=== PATIENT | female | born 1945 | race Caucasian/White ===

== ENCOUNTER 2017-11-18 20:31 | Emergency (ER) | payer OTHER ==
[2017-11-18 21:29] LABS: Arterial Blood Carboxyhemoglob 1.2 % (0-1.5); Blood Gas Oxyhemoglobin 96.8 % (94-97)
[2017-11-18] MEDS ORDERED: IPRATROPIUM BROM 0.5MG/2.5ML ONE (21:47)
[2017-11-18] MEDS ORDERED: ALBUTEROL 2.5 MG/3 ML NEB SOL ONE (21:47)
[2017-11-18] MEDS ORDERED: METHYLPREDNISOLONE 125 MG INJ ONE (21:47)
[2017-11-18] MEDS ORDERED: NA CHLORIDE 0.9% 1,000 ML ONE (21:47)
[2017-11-18 21:49] LABS: Absolute Lymphocytes (CBC) 1.7 K/uL (0.7-4.9); Absolute Monocytes 0.3 K/uL (0.1-1.3); Absolute Neutrophil 3.6 K/uL (1.8-8.0); Basophils % 0.6 % (0-1.3); Eosinophils % 2.3 % (0-4.4); Hematocrit 43.1 % (36.0-45.0); MCH 30.2 pg (27.0-35.0); MCV 89.1 fL (80-100); MPV 9.1 fL (7.6-11.3); RBC Red Blood Cell Count 4.83 M/uL (3.86-4.86)
[2017-11-18 21:55] LABS: Protime INR 1.05
[2017-11-18 22:04] LABS: Bicarbonate 30 mEq/L (21-31); Glucose Level 103 mg/dL (65-120); Lipase 19 U/L (22-51); Sodium Level 138 mEq/L (135-145)
[2017-11-18 22:10] LABS: ALT/SGPT 15 IU/L (10-60); AST/SGOT 18 IU/L (10-42); Albumin 4.1 g/dL (3.2-5.5); Alkaline Phosphatase 117 IU/L (42-121); Amylase Level 36 U/L (28-100); BUN Blood Urea Nitrogen 14 mg/dL (6-20); Bilirubin Direct 0.1 mg/dL (0-0.2); Bilirubin Total 0.8 mg/dL (0.3-1.2); Creatine Phosphokinase 33 IU/L (22-269); Magnesium 1.8 mg/dL (1.8-2.5); Protein, Total 7.4 g/dL (6.0-8.3)
[2017-11-18 22:12] LABS: CKMB Creatine Kinase MB 1.3 ng/ml (0.3-4.0)
--- NOTE | 2017-11-18 23:21 | EDPHYS ---
Physician Documentation [facility] Name: Chey Kay Age: 72 yrs Sex: Female : 1945 Arrival Date: 11/18/2017 Time: 20:32 Bed 20 Private MD: Jv Good E ED Physician Mata Meneses HPI: 11/18 21:13 This 72 yrs old Female presents to ER via Wheelchair with complaints of pkl Breathing Difficulty, Side Pain. 21:13 The patient has shortness of breath at rest. Onset: The symptoms/episode began/occurred pkl 1 week(s) ago. Associated signs and symptoms: Pertinent positives: chest pain, productive cough. The patient has experienced similar episodes in the past, several times. Patient said she is also depressed over granddaughter being taken away by CPS. Historical: - Allergies: 20:54 NKDA; ea - Home Meds: 20:54 citalopram 20 mg oral tab [Active]; hydrocodone-acetaminophen 7.5-325 mg oral tab ea [Active]; - PMHx: 20:54 COPD; Hepatitis; ea - PSHx: 20:54 Appendectomy; ea - Immunization history:: Adult Immunizations up to date. - Social history:: Smoking status: Patient/guardian denies using tobacco, the patient reports quitting approximately 1 years ago. ROS: 21:13 Eyes: Negative for injury, pain, redness, and discharge, ENT: Negative for injury, pkl pain, and discharge, Neck: Negative for injury, pain, and swelling. 21:13 Cardiovascular: Positive for chest pain. 21:13 Respiratory: Positive for cough, with clear sputum, shortness of breath, wheezing. 21:13 Abdomen/GI: Negative for abdominal pain, nausea, vomiting, and diarrhea. 21:13 Back: Negative for acute changes. 21:13 : Negative for urinary symptoms. 21:13 MS/extremity: Negative for acute changes. 21:13 Skin: Negative for rash. 21:13 Neuro: Negative for altered mental status. Exam: 21:13 Head/Face: Normocephalic, atraumatic. Eyes: Pupils equal round and reactive to light, pkl extra-ocular motions intact. Lids and lashes normal. Conjunctiva and sclera are non-icteric and not injected. Cornea within normal limits. Periorbital areas with no swelling, redness, or edema. ENT: Nares patent. No nasal discharge, no septal abnormalities noted. Tympanic membranes are normal and external auditory canals are clear. Oropharynx with no redness, swelling, or masses, exudates, or evidence of obstruction, uvula midline. Mucous membranes moist. Neck: Trachea midline, no thyromegaly or masses palpated, and no cervical lymphadenopathy. Supple, full range of motion without nuchal rigidity, or vertebral point tenderness. No Meningismus. Chest/axilla: Normal chest wall appearance and motion. Nontender with no deformity. No lesions are appreciated. Cardiovascular: Regular rate and rhythm with a normal S1 and S2. No gallops, murmurs, or rubs. Normal PMI, no JVD. No pulse deficits. 21:13 ECG was reviewed by the Attending Physician. 21:13 Respiratory: mild respiratory distress is noted, Respirations: labored breathing, that is mild, Breath sounds: bronchial sounds, that are mild, are scattered, rhonchi, that are mild, are scattered. 21:13 Abdomen/GI: Exam negative for acute changes. 21:13 Back: Exam negative for acute changes. 21:13 : Exam negative for acute changes. 21:13 Musculoskeletal/extremity: Exam is negative for acute changes. 21:13 Skin: Exam negative for rash. 21:13 Neuro: Orientation: is normal, Mentation: is normal, Cranial nerves: grossly normal, Motor: is normal. Vital Signs: 20:55 BP 112 / 71; Pulse 96; Resp 20 S; Temp 98.1(O); Pulse Ox 96% on 3 lpm NC; Weight 55.79 ea kg (R); Height 5 ft. 1 in. (154.94 cm) (R); Pain 7/10; 22:04 BP 110 / 58; Pulse 61; Resp 20 S; Pulse Ox 99% on Nebulizer Mask; jd3 22:47 BP 115 / 62; Pulse 90; Resp 19 S; Pulse Ox 96% on 2 lpm NC; jd3 20:55 Body Mass Index 23.24 (55.79 kg, 154.94 cm) ea MDM: 20:43 Patient medically screened. pkl 23:11 Data reviewed: vital signs, nurses notes, lab test result(s), EKG, radiologic studies, pkl plain films. 11/18 21:11 Order name: Basic Metabolic Panel; Complete Time: 23:09 pkl 05/05 21:11 Order name: BNP; Complete Time: 23:09 pkl 05/05 21:11 Order name: CBC with Diff; Complete Time: 23:09 pkl 05/05 21:11 Order name: Ckmb; Complete Time: 23:09 pkl 05/ 21:11 Order name: CPK; Complete Time: 23:09 pkl 05/ 21:11 Order name: LFT's; Complete Time: 23:09 pkl 05/ 21:11 Order name: Magnesium; Complete Time: 23:09 pkl 05/ 21:11 Order name: PT-INR; Complete Time: 23:09 pkl 05/05 21:11 Order name: Ptt, Activated; Complete Time: 23:09 pkl 05/ 21:11 Order name: Troponin (emerg Dept Use Only); Complete Time: 23:09 pkl 05/05 21:12 Order name: ABG; Complete Time: 23:09 pkl 05/ 21:12 Order name: Procalcitonin; Complete Time: 23:09 pkl 05/05 21:12 Order name: Lactate; Complete Time: 23:09 pkl 05/05 21:12 Order name: Amylase, Serum; Complete Time: 23:09 pkl 05/05 21:11 Order name: XRAY Chest (1 view) pkl 05/05 21:11 Order name: EKG; Complete Time: 21:11 pkl 05/ 21:11 Order name: Cardiac monitoring; Complete Time: 21:21 pkl 05/ 21:11 Order name: EKG - Nurse/Tech; Complete Time: 21:34 pkl 05/ 21:11 Order name: IV Saline Lock; Complete Time: 21:45 pkl 05/ 21:11 Order name: Labs collected and sent; Complete Time: 21:45 pkl 05/ 21:11 Order name: O2 Per Protocol; Complete Time: 21:21 pkl 05/ 21:11 Order name: O2 Sat Monitoring; Complete Time: 21:21 pkl 05/ 21:18 Order name: Lipase; Complete Time: 23:09 EDMS Administered Medications: 21:55 Drug: NS 0.9% 1000 ml Route: IV; Rate: 100 ml/hr; Site: right antecubital; ea 23:32 Follow up: Response: No adverse reaction; IV Status: Order to discontinue infusion jd3 21:56 Drug: Albuterol - atroVENT (3:1) (2.5 mg - 0.5 mg) 3 ml Route: Nebulizer; ea 23:35 Follow up: Response: No adverse reaction; Marked relief of symptoms jd3 21:56 Drug: SOLU-Medrol 125 mg Route: IVP; Site: right antecubital; ea 23:35 Follow up: Response: No adverse reaction jd3 Disposition: 11/18/17 23:20 Discharged to Home. Impression: COPD exacerbation. Depression. - Condition is Stable. - Prescriptions for Ativan 1 mg Oral Tablet - take 1 tablet by ORAL route 2 times per day As needed; 10 tablet. - Medication Reconciliation Form, Thank You Letter, Antibiotic Education, Prescription Opioid Use form. - Follow up: Jv Good MD; When: 2 - 3 days; Reason: Re-evaluation by your physician. - Problem is new. - Symptoms have improved. Signatures: Dispatcher [employer] EDNY Mata Meneses MD MD pkl Afshan Lopez, RN RN Clay Jack RN RN jd3 Corrections: (The following items were deleted from the chart) 21:18 21:13 LIPASE+C.LAB.BRZ ordered. [facility] EDNY 23:36 23:20 11/18/2017 23:20 Discharged to Home. Impression: COPD exacerbation. Depression. jd3 Condition is Stable. Forms are Medication Reconciliation Form, Thank You Letter, Antibiotic Education, Prescription Opioid Use. Follow up: Jv Good; When: 2 - 3 days; Reason: Re-evaluation by your physician. Problem is new. Symptoms have improved. pkl
--- NOTE | 2017-11-18 23:21 | ER ---
Nurse's Notes [facility] Name: Chey Kay Age: 72 yrs Sex: Female : 1945 Arrival Date: 11/18/2017 Time: 20:32 Bed 20 Private MD: Jv Good E Diagnosis: COPD exacerbation. Depression Presentation: 11/18 20:49 Presenting complaint: Patient states: "It has been really hard to breath recently. I am ea also having this pain on my left flank. Also I am feeling depressed because CPS took my granddaughter away form down the [address] so I can't go visit her anymore which is making things harder to breath and I am depressed and I don't know what to do.". Transition of care: patient was not received from another setting of care. Onset of symptoms was November 14, 2017. Initial Sepsis Screen: Does the patient meet any 2 criteria? No. Patient's initial sepsis screen is negative. Does the patient have a suspected source of infection? No. Patient's initial sepsis screen is negative. Care prior to arrival: None. 20:49 Method Of Arrival: Wheelchair ea 20:49 Acuity: RANDALL 3 ea Historical: - Allergies: 20:54 NKDA; ea - Home Meds: 20:54 citalopram 20 mg oral tab [Active]; hydrocodone-acetaminophen 7.5-325 mg oral tab ea [Active]; - PMHx: 20:54 COPD; Hepatitis; ea - PSHx: 20:54 Appendectomy; ea - Immunization history:: Adult Immunizations up to date. - Social history:: Smoking status: Patient/guardian denies using tobacco, the patient reports quitting approximately 1 years ago. Screenin:00 Abuse screen: Denies threats or abuse. Nutritional screening: No deficits noted. jd3 Tuberculosis screening: No symptoms or risk factors identified. Fall Risk Ambulatory Aid- None/Bed Rest/Nurse Assist (0 pts). Gait- Weak (10 pts.). Mental Status- Oriented to own ability (0 pts). Total Tse Fall Scale indicates No Risk (0-24 pts). Assessment: 20:58 General: Appears uncomfortable, Behavior is cooperative, appropriate for age, anxious. jd3 Pain: Complains of pain in left lateral anterior chest Pain currently is 7 out of 10 on a pain scale. Quality of pain is described as aching, Pain began 1 week. Neuro: Level of Consciousness is awake, alert, obeys commands, Oriented to person, place, time, situation. Cardiovascular: Heart tones S1 S2 present Capillary refill < 3 seconds Patient's skin is warm and dry. Respiratory: Airway is patent Respiratory effort is even, labored, Respiratory pattern is regular, symmetrical, Breath sounds with wheezes bilaterally. GI: Abdomen is round Abd is soft and non tender X 4 quads. Patient currently denies nausea, vomiting. : No signs and/or symptoms were reported regarding the genitourinary system. EENT: No signs and/or symptoms were reported regarding the EENT system. Derm: Skin is intact, Skin is dry, Skin is normal, Skin temperature is warm. Musculoskeletal: Circulation, motion, and sensation intact. Range of motion: intact in all extremities. 22:04 Reassessment: Patient appears in no apparent distress at this time. Patient and/or jd3 family updated on plan of care and expected duration. Pain level reassessed. 22:48 Reassessment: Patient appears in no apparent distress at this time. Patient and/or jd3 family updated on plan of care and expected duration. Pain level reassessed. 23:36 Reassessment: Patient appears in no apparent distress at this time. Patient and/or jd3 family updated on plan of care and expected duration. Pain level reassessed. Patient is alert, oriented x 3, equal unlabored respirations, skin warm/dry/pink. pt reported understanding of discharge instructions, assisted pt to front of ER with wheelchair. Vital Signs: 20:55 BP 112 / 71; Pulse 96; Resp 20 S; Temp 98.1(O); Pulse Ox 96% on 3 lpm NC; Weight 55.79 ea kg (R); Height 5 ft. 1 in. (154.94 cm) (R); Pain 7/10; 22:04 BP 110 / 58; Pulse 61; Resp 20 S; Pulse Ox 99% on Nebulizer Mask; jd3 22:47 BP 115 / 62; Pulse 90; Resp 19 S; Pulse Ox 96% on 2 lpm NC; jd3 20:55 Body Mass Index 23.24 (55.79 kg, 154.94 cm) ED Course: 20:32 Patient arrived in ED. do 20:32 Jv Good MD is Private Physician. do 20:43 Mata Meneses MD is Attending Physician. pkl 20:49 Afshan Lopez, RN is Primary Nurse. ea 20:53 Triage completed. ea 20:57 Arm band placed on. ea 20:58 Primary Nurse role handed off by Afshan Lopez RN jd3 20:58 Clay Mir, RN is Primary Nurse. jd3 21:00 Patient has correct armband on for positive identification. Bed in low position. Call jd3 light in reach. Side rails up X 1. 21:33 EKG done, by ED staff, reviewed by Mata Meneses MD. 3 22:49 XRAY Chest (1 view) In Process Unspecified. EDMS 23:19 Jv Good MD is Referral Physician. pkl 23:35 No provider procedures requiring assistance completed. IV discontinued, intact, jd3 bleeding controlled, No redness/swelling at site. Pressure dressing applied. Administered Medications: 21:55 Drug: NS 0.9% 1000 ml Route: IV; Rate: 100 ml/hr; Site: right antecubital; ea 23:32 Follow up: Response: No adverse reaction; IV Status: Order to discontinue infusion jd3 21:56 Drug: Albuterol - atroVENT (3:1) (2.5 mg - 0.5 mg) 3 ml Route: Nebulizer; ea 23:35 Follow up: Response: No adverse reaction; Marked relief of symptoms jd3 21:56 Drug: SOLU-Medrol 125 mg Route: IVP; Site: right antecubital; ea 23:35 Follow up: Response: No adverse reaction jd3 Outcome: 23:20 Discharge ordered by . pkl 23:35 Discharged to home via wheelchair. jd3 23:35 Condition: stable 23:35 Discharge instructions given to patient, Instructed on discharge instructions, follow up and referral plans. medication usage, Demonstrated understanding of instructions, follow-up care, medications, Prescriptions given X 1. 23:36 Patient left the ED. jd3 Signatures: Dispatcher [employer] EDMS Mata Meneses MD MD pkl Yoselin Dobbins [facility] Afshan Lopez, Clay Su RN, ea, RN RN jd3 Corrections: (The following items were deleted from the chart) 22:05 22:04 BP 108 / 72; Pulse 61bpm; Resp 18bpm; Spontaneous; Pulse Ox 100% RA; Pain 0/10; jd3 jd3 22:49 22:04 Reassessment: Patient appears in no apparent distress at this time. Patient jd3 and/or family updated on plan of care and expected duration. Pain level reassessed. Patient is alert, oriented x 3, equal unlabored respirations, skin warm/dry/pink. jd3 22:49 22:48 Reassessment: Patient appears in no apparent distress at this time. Patient jd3 and/or family updated on plan of care and expected duration. Pain level reassessed. Patient is alert, oriented x 3, equal unlabored respirations, skin warm/dry/pink. jd3 22:50 22:04 Reassessment: Patient appears in no apparent distress at this time. Patient jd3 and/or family updated on plan of care and expected duration. Pain level reassessed. jd3
[2017-11-18 23:55] VITALS: TEMP 98.1
[2017-11-18 23:58] VITALS: BP 115/62; O2SAT 96
--- NOTE | 2017-11-19 05:48 | EKG ---
Test Date: 2017-11-18 Test Time: 21:27:00 Hadoop Application Developer: DANUTA MEASUREMENT RESULTS: Intervals: Rate: 67 [place]: 144 QRSD: 68 QT: 422 QTc: 445 [place]: P: 75 [place]: 144 QRS: 35 T: 30 INTERPRETIVE STATEMENTS: Normal sinus rhythm T wave abnormality, consider anterior ischemia Abnormal ECG Compared to ECG 04/06/2016 14:31:14 T-wave abnormality now present Atrial abnormality no longer present ST (T wave) deviation no longer present Possible ischemia still present Electronically Signed On 11-19-17 05:46:57 CDT by Jonel Martin
--- NOTE | 2017-11-19 14:56 | RAD REPORT ---
EXAM DESCRIPTION: RAD - Chest Single View - 11/18/2017 10:49 pm CLINICAL HISTORY: Shortness of breath COMPARISON: 12/07/2016 FINDINGS: Portable technique limits examination quality. The lungs are diffusely emphysematous but clear. The heart is normal in size. Mild thoracic dextrosco liosis. IMPRESSION: COPD.
== END 2017-11-18 23:36 | disposition home or self-care (01) ==
LOC: ER 20:31
DX: J44.1 Chronic obstructive pulmonary disease with (acute) exacerbation (principal); F32.9 Major depressive disorder, single episode, unspecified
CPT/HCPCS: 36415; 71045; 80048; 80076; 82150; 82550; 82553; 82805; 83605; 83690; 83735; 83880; 84145; 84484; 85025; 85610; 85730; 93005; 94640; 96361; 96374; 99284; J2930; J7030

== ENCOUNTER 2018-01-24 09:13 | Day surgery (SDC) | payer OTHER ==
[~2018-01-24 09:13] MED LIST: FENTANYL CITR 100 MCG/2 ML ONE; LIDOCAINE 2% MPF 5 ML VIAL ONE; MIDAZOLAM HCL 2 MG/2 ML INJ ONE; PROPOFOL 200 MG/20 ML VIAL IV ONE
[2018-01-24] MEDS ORDERED: ONDANSETRON HCL 40 MG/20 ML VIAL ONE (09:16)
[2018-01-24] MEDS ORDERED: ROCURONIUM 50 MG/5 ML VIAL IV ONE (09:17)
[2018-01-24] MEDS ORDERED: Ringers Lactate 1,000 ML IV ONE (09:30)
[2018-01-24] MEDS ORDERED: CEFAZOLIN/SWI 1gm 1 GM/10 ML SYR ONE (09:31)
[2018-01-24 09:36] LABS: Absolute Lymphocytes (CBC) 1.9 K/uL (0.7-4.9); Absolute Monocytes 0.3 K/uL (0.1-1.3); Absolute Neutrophil 2.2 K/uL (1.8-8.0); Basophils % 0.9 % (0-1.3); Eosinophils % 3.4 % (0-4.4); Hematocrit 45.1 % (36.0-45.0); MCH 30.2 pg (27.0-35.0); MCV 90.3 fL (80-100); MPV 9.6 fL (7.6-11.3); Monocytes % 6.3 % (3.3-12.3); RBC Red Blood Cell Count 4.99 M/uL (3.86-4.86)
[2018-01-24 09:45] LABS: BUN Blood Urea Nitrogen 24 mg/dL (7-18); Bicarbonate 34 mmol/L (21-32); Glucose Level 92 mg/dL (74-106); Potassium 4.3 mmol/L (3.5-5.1); Sodium Level 140 mmol/L (136-145)
[2018-01-24] MEDS ORDERED: predniSONE 20 MG TAB PO ONE (10:00)
[2018-01-24] MEDS ORDERED: ALBUTEROL 2.5 MG/3 ML NEB SOL ONE (10:12)
[2018-01-24] MEDS ORDERED: Phenylephrine HCl 10 MG/ML 1 ML VIAL ONE (10:37)
[2018-01-24] MEDS ORDERED: EPHEDRINE SULF 50 MG/5 ML SYR ONE (10:46)
--- NOTE | 2018-01-24 11:10 | RAD REPORT ---
EXAM DESCRIPTION: Brian Pa And Lat (2 Views)01/24/2018 9:10 am CLINICAL HISTORY: Abdominal pain/abdominal hernia/preop COMPARISON: November 2017 FINDINGS: Mild bilateral pulmonary opacities appear chronic. The lungs are mildly hyperaerated The lungs appear clear of acute infiltrate. The heart is normal size. Many compression fractures involve the thoracic spine IMPRESSION: Mild COPD without visualization acute abnormality
[2018-01-24] MEDS ORDERED: GLYCOPYRROLATE 0.2 MG/ML SYR ONE ×2 (11:27)
[2018-01-24] MEDS ORDERED: NEOSTIGMINE 1 MG/ML -5 ML SYRINGE ONE (11:27)
[2018-01-24] MEDS: MORPHINE 4 MG/ML SYR ONE ×8 (11:57→12:53)
[2018-01-24] MEDS ORDERED: KETOROLAC 30 MG/ML INJ ONE (12:01)
--- NOTE | 2018-01-24 12:08 | EKG ---
Test Date: 2018-01-24 Test Time: 08:55:02 Hoe Runner: MARIBEL MEASUREMENT RESULTS: Intervals: Rate: 68 [place]: 124 QRSD: 68 QT: 364 QTc: 387 [place]: P: 52 [place]: 124 QRS: 85 T: 65 INTERPRETIVE STATEMENTS: Normal sinus rhythm Nonspecific T wave abnormality Abnormal ECG Compared to ECG 11/18/2017 21:27:00 Possible ischemia no longer present T-wave abnormality still present Electronically Signed On 01-24-18 12:07:03 CDT by Jonel Martin
[2018-01-24] MEDS ORDERED: HYDROCODONE/APAP 7.5/325 MG TAB ONE (13:22)
[2018-01-24 14:36] VITALS: BP 120/69; TEMP 97.2; O2SAT 90
--- NOTE | 2018-01-24 23:03 | OP ---
Date of Procedure: 01/24/2018 Surgeon: Marquez Mueller MD Respiratory Therapy Instructor: GIACOMO Craft. Preoperative Diagnosis: Incarcerated ventral hernia. Postoperative Diagnosis: Incarcerated ventral hernia. Procedure: Laparoscopic assisted repair of incarcerated ventral hernia. Estimated Blood Loss: Minimal. Specimen: Hernia sac and contents. Findings: As above. Anesthesia: General. Complications: None. Disposition: The patient tolerated the procedure in stable condition and taken to Recovery in good g eneral condition. Operative Note: The patient was brought to the OR and placed in supine position. General anesthesia was begun. The patient was prepped and draped in usual sterile fashion. Marcaine 0.5% was infiltra ashutosh locally. A 15-blade was used to make a 2 cm left upper quadrant incision. Subcutaneous tissues divided. Fascia and plane divided. A #1 Vicryl stay suture was placed. Peritoneal cavity was enter ed with sharp and blunt dissection. A 12-mm trocar was placed into the peritoneal cavity under direc t vision. Pneumoperitoneum was established, and then a 5 mm trocar was placed in the left lower quad rant. Laparoscopy revealed the incarcerated ventral hernia with omentum in it. Sharp and blunt diss ection were used to take some of the adhesions down and then the hernia defect was identified. A 4 i ncision was made over the hernia defect. Subcutaneous tissue divided. Hernia sac and contents excis ed. Approximately a 3 cm defect remained. Ventralex mesh large in size was placed into the peritone al cavity, and primary closure of the hernia defect was done with #1 running PDS suture. Wound irrig ated. Bleeding was controlled with cautery. A 3-0 chromic used to approximate subcutaneous tissue a nd close the skin. Then pneumoperitoneum reestablished and complete coverage of the hernia defect wa s accomplished and then tacker was used to help secure the Ventralex mesh to the peritoneal surface. No evidence of bleeding or bowel injury appreciated. Subsequently, all trocars were removed under d irect vision. Stay sutures were tied to each other across the fascial defect. Subcutaneous wounds w ere irrigated. Bleeding controlled with cautery and 3-0 chromic was used to approximate subcutaneous tissue and close the skin. Sterile dressing was applied. The patient was awakened and taken to Rec overy in good general condition. Discharge Note: The patient will go to Day Surgery and home when stable. Disposition: Home. Condition: Stable. Discharge Instructions: Resume home medications and diet. Activity as tolerated. No heavy lifting. Remove outer dressing in 2 days. Shower. Keep wound clean and dry. Keep Steri-Strips on at all t imes. Abdominal binder. Tylenol No. 3 one tablet p.o. q.4 p.r.n. pain. KIRT/ELDER Voice ID: [id number] Report ID: [id number]
== END 2018-01-24 14:06 | disposition home or self-care (01) ==
LOC: OR 09:13
PROVIDERS: ATTEND Surgery
PROC: 0WUF4JZ Supplement Abdominal Wall with Synthetic Substitute, Percutaneous Endoscopic Approach (ICD-10-PCS; principal; 2018-01-24 10:00)
DX: K43.6 Other and unspecified ventral hernia with obstruction, without gangrene (principal); J44.9 Chronic obstructive pulmonary disease, unspecified; M81.0 Age-related osteoporosis without current pathological fracture; B18.2 Chronic viral hepatitis C; Z87.891 Personal history of nicotine dependence
CPT/HCPCS: 36415; 71046; 80048; 85025; 88302; 93005; 94640; J0690; J2250; J2370; J2405; J2710; J3010; J7512

== ENCOUNTER 2018-01-27 09:16 | Inpatient (IN) | payer OTHER ==
[2018-01-27] MEDS ORDERED: RSI MEDICATION KIT IV ONE (09:18)
[2018-01-27] MEDS ORDERED: NOREPINEPHRINE 4mg/D5W 250mL 4 MG/250 ML BAG IV ONE ×2 (09:34→13:05)
[2018-01-27 09:46] LABS: Arterial Blood Carboxyhemoglob 1.2 % (0-1.5); Blood Gas Oxyhemoglobin 97.1 % (94-97); Blood O2 Saturation 99.3 % (92-98.5)
[2018-01-27 09:49] LABS: Absolute Lymphocytes (CBC) 2.6 K/uL (0.7-4.9); Absolute Monocytes 0.8 K/uL (0.1-1.3); Absolute Neutrophil 9.3 K/uL (1.8-8.0); Basophils % 0.8 % (0-1.3); Eosinophils % 0.3 % (0-4.4); Hematocrit 40.1 % (36.0-45.0); Lymphocytes % 20.5 % (15.3-44.8); MCH 30.4 pg (27.0-35.0); MCV 95.4 fL (80-100); MPV 10.2 fL (7.6-11.3); Monocytes % 5.9 % (3.3-12.3)
[2018-01-27 09:57] LABS: Protime INR 1.08
--- NOTE | 2018-01-27 09:57 | RAD REPORT ---
EXAM DESCRIPTION: RAD - Chest Single View - 01/27/2018 9:44 am CLINICAL HISTORY: CPR in progress, respiratory distress COMPARISON: January 24 TECHNIQUE: AP portable chest image was obtained [id number] hours . FINDINGS: Fibrotic lung changes are present similar to comparison. No pulmonary contusion or acute l anastasiya parenchymal process. ET tube is mid aortic arch 2 cm above the [place]. Resuscitation paddles are in place. Heart and vasculature are normal. No measurable pleural effusion and no pneumothorax. No gr oss bony abnormality seen. No acute aortic findings suspected. IMPRESSION: Endotracheal tube in good position mid aortic arch. Chronic interstitial lung disease with no acute lung parenchymal process identifiable.
[2018-01-27 10:12] LABS: Albumin 2.9 g/dL (3.4-5.0); Bilirubin Direct 0.2 mg/dL (0-0.2); Bilirubin Total 0.5 mg/dL (0.2-1.0); CKMB Creatine Kinase MB 3.3 ng/mL (0.3-3.6); Magnesium 2.5 mg/dL (1.8-2.4); Protein, Total 6.5 g/dL (6.4-8.2)
[2018-01-27 10:15] LABS: Potassium 7.2 mmol/L (3.5-5.1)
[2018-01-27] MEDS ORDERED: D50W 25 GM/50 ML SYRINGE IV ONE (10:20)
[2018-01-27] MEDS ORDERED: NA CHLORIDE 0.9% 1,000 ML ONE (10:20)
--- NOTE | 2018-01-27 10:22 | EDPHYS ---
Physician Documentation [facility] Name: Chey Kay Age: 72 yrs Sex: Female : 1945 Arrival Date: 01/27/2018 Time: 09:21 Bed 4 Private MD: ED Physician Hi Wiggins HPI: 01/27 09:37 This 72 yrs old Female presents to ER via EMS with complaints of CPR. toya 09:37 This 72 yrs old Female presents to ER via EMS with complaints of CPR. toya 09:37 Preceding the arrest, the patient collapsed. The arrest occurred at home. Pre-hospital toya course: Bystanders at the scene performed CPR. Historical: - Allergies: 12:21 NKDA; ph - Home Meds: 12:21 Albuterol Inhl [Active]; citalopram 20 mg tab [Active]; hydrocodone-acetaminophen ph 7.5-325 mg Oral tab for Pain [Active]; ProAir HFA inhalation [Active]; tramadol 50 mg Oral tab 2 tabs every 6 hours for Pain [Active]; - PMHx: 12:21 COPD; Hepatitis; ph - PSHx: 12:21 Appendectomy; Hernia repair; ph - Immunization history:: Adult Immunizations unknown. - Social history:: Smoking status: unknown. - Family history:: not pertinent. - Ebola Screening: : No symptoms or risks identified at this time. ROS: 09:38 Back: Negative for injury and pain. toya 09:38 Abdomen/GI: Positive for abdominal distension, of the epigastric area, ecchymosis at upper abdomen surgical site. 09:38 Unable to obtain ROS due to patient is on ventilator. Exam: 09:38 Neck: Trachea midline, no thyromegaly or masses palpated, and no cervical toya lymphadenopathy. Supple, full range of motion without nuchal rigidity, or vertebral point tenderness. No Meningismus. Back: No spinal tenderness. No costovertebral tenderness. Full range of motion. MS/ Extremity: Pulses equal, no cyanosis. Neurovascular intact. Full, normal range of motion. 09:38 Cardiovascular: Rate: actual rate is 0 bpm, Rhythm: asystole, Pulses: not palpable, Heart sounds: none, Edema: is not appreciated, JVD: is noted bilaterally, to 3 cm. Vital Signs: 09:33 BP 120 / 91; Pulse 117; Resp 20; Pulse Ox 100% on 50% FiO2 ETT vent; dh3 09:36 BP 125 / 72; Pulse 113; Resp 20; Pulse Ox 100% on 50% FiO2 ETT vent; dh3 09:39 BP 122 / 69; Pulse 110; Resp 20; Pulse Ox 100% on 50% FiO2 ETT vent; dh3 09:42 BP 116 / 56; Pulse 108; Resp 20; Pulse Ox 100% on 50% FiO2 ETT vent; dh3 09:51 BP 76 / 55; Pulse 100; Resp 20; Pulse Ox 100% on 50% FiO2 ETT vent; dh3 09:54 BP 67 / 35; Pulse 97; Resp 20; Pulse Ox 99% on 50% FiO2 ETT vent; dh3 10:15 BP 60 / 30; Pulse 76; Resp 18; Pulse Ox 99% on 50% FiO2 ETT vent; ph 10:30 BP 70 / 23; Pulse 70; Resp 20; Temp 96.7(C); Pulse Ox 100% on 50% FiO2 ETT vent; ph 10:45 BP 93 / 37; Pulse 70; Resp 20; Temp 96.5(A); Pulse Ox 100% on 50% FiO2 ETT vent; ph 11:00 BP 115 / 51; Pulse 74; Resp 20; Temp 96.3(C); Pulse Ox 100% on 50% FiO2 ETT vent; ph 11:15 BP 128 / 61; Pulse 74; Resp 20; Temp 96.4(C); Pulse Ox 100% on 50% FiO2 ETT vent; ph 11:30 BP 137 / 78; Pulse 72; Resp 20; Temp 96.1; Pulse Ox 100% on 50% FiO2 ETT vent; ph 11:45 BP 129 / 66; Pulse 79; Resp 20; Temp 96.1(C); Pulse Ox 100% on 50% FiO2 ETT vent; ph 12:00 BP 131 / 60; Pulse 75; Resp 20; Temp 96.2(C); Pulse Ox 100% on 50% FiO2 ETT vent; ph 12:07 BP 135 / 57; Pulse 85; Resp 20; Temp 96.2(C); Pulse Ox 100% on 50% FiO2 ETT vent; ph 12:15 BP 126 / 56; Pulse 88; Resp 20; Temp 96.2; Pulse Ox 100% on 50% FiO2 ETT vent; ph 12:30 BP 118 / 54; Pulse 81; Resp 20; Temp 96.4(C); Pulse Ox 100% on 50% BiPAP; ph 12:45 BP 104 / 59; Pulse 84; Resp 20; Temp 96.5(C); Pulse Ox 100% on 50% FiO2 ETT vent; ph 13:00 BP 82 / 52; Pulse 94; Resp 20; Temp 96.7(C); Pulse Ox 100% on 50% FiO2 ETT vent; ph 13:15 BP 94 / 73; Pulse 73; Resp 20; Temp 96.8(C); Pulse Ox 100% on 50% FiO2 ETT vent; ph 13:30 BP 118 / 60; Pulse 87; Resp 20; Temp 96.8(C); Pulse Ox 100% on 50% FiO2 ETT vent; ph 13:51 BP 113 / 60; Pulse 97; Resp 20; Temp 97.4; Pulse Ox 100% on 50% FiO2 ETT vent; Weight ph 58.97 kg; Height 5 ft. 3 in. (160.02 cm); 13:51 Body Mass Index 23.03 (58.97 kg, 160.02 cm) ph [place] Coma Score: 09:18 Eye Response: none(1). Verbal Response: none(1). Motor Response: none(1). Total: 3. Procedures: 10:13 Intubation: Ventilated with 100% NRB prior to procedure. Intubated orally using # 3 toya Miryam blade with 7.5 mm ETT. was successful on first attempt. Ventilated with Ambu bag. Placement verified by CXR, CO2 detector with (+) color change, auscultating bilateral breath sounds, O2 saturation after procedure was 100 %. Patient tolerated well. 10:17 Central Line: the site was prepped with Betadine, in sterile fashion, a triple lumen toya catheter was inserted, in the right in 1 attempts. placement was verified, by CXR, the site was dressed with using sterile technique, the patient tolerated the procedure, well. MDM: 09:34 Patient medically screened. [facility] 09:38 Data reviewed: vital signs, nurses notes, lab test result(s), EKG, radiologic studies, [facility] CT scan, plain films. 01/27 09:25 Order name: ABG 01/27 09:26 Order name: ABG Arterial Blood Gas; Complete Time: 10:12 [facility] 01/27 09:26 Order name: Basic Metabolic Panel; Complete Time: 10:18 [facility] 01/27 09:26 Order name: CBC with Diff; Complete Time: 11:57 [facility] 01/27 09:26 Order name: Ckmb; Complete Time: 10:18 [facility] 01/27 09:26 Order name: CPK; Complete Time: 10:18 [facility] 01/27 09:26 Order name: LFT's; Complete Time: 10:18 [facility] 01/27 09:26 Order name: Magnesium; Complete Time: 10:18 [facility] 01/27 09:26 Order name: NT PRO-BNP; Complete Time: 10:18 [facility] 01/27 09:26 Order name: PT-INR; Complete Time: 10:12 [facility] 01/27 09:26 Order name: Ptt, Activated; Complete Time: 10:12 [facility] 01/27 09:26 Order name: Troponin (emerg Dept Use Only); Complete Time: 10:18 [facility] 01/27 09:26 Order name: TS; Complete Time: 10:31 [facility] 01/27 09:37 Order name: Lipase; Complete Time: 10:31 [facility] 01/27 09:26 Order name: XRAY Chest (1 view); Complete Time: 10:12 [facility] 01/27 09:37 Order name: Blood Culture Adult (2) [facility] 01/27 09:37 Order name: CT Traumagram (Head C Spine CAP wo con) [facility] 01/27 10:09 Order name: CBC Smear Scan; Complete Time: 11:57 [facility] 01/27 10:14 Order name: Chem 7; Complete Time: 11:57 [facility] 01/27 12:04 Order name: CT [facility] 01/27 12:09 Order name: Chest Single View XRAY: ett readjusted [facility] 01/27 12:57 Order name: ABO/RH no charge [facility] 01/27 13:39 Order name: RAD [facility] 01/27 09:26 Order name: EKG; Complete Time: 09:27 [facility] 01/27 09:26 Order name: Cardiac monitoring; Complete Time: 09:38 [facility] 01/27 09:26 Order name: EKG - Nurse/Tech; Complete Time: 10:32 [facility] 01/27 09:26 Order name: IV Saline Lock; Complete Time: 09:38 [facility] 01/27 09:26 Order name: Labs collected and sent; Complete Time: 09:38 [facility] 01/27 09:26 Order name: O2 Per Protocol; Complete Time: :38 [facility] 01/27 09:26 Order name: O2 Sat Monitoring; Complete Time: 09:39 [facility] 01/27 10:28 Order name: CONS Physician Consult EDMS 01/27 10:28 Order name: CONS Physician Consult EDMS Administered Medications: 09:17 Drug: EPINEPHrine 0.1mg/mL 1:10,000 1 mg Route: IVP; Site: right antecubital; ss 10:00 Follow up: Response: No adverse reaction ph 09:18 Drug: NS 0.9% 1000 ml Route: IV; Rate: 1 bolus; Site: right antecubital; ss 10:30 Follow up: Response: No adverse reaction; IV Status: Completed infusion ph 09:18 Drug: Sodium Bicarbonate 1 amp Route: IVP; Site: right antecubital; ss 10:30 Follow up: Response: No adverse reaction ph 09:30 Drug: NS 0.9% 1000 ml Route: IV; Rate: 1000 ml; Site: right femoral; ph 10:30 Follow up: Response: No adverse reaction; IV Status: Completed infusion ph 10:00 Drug: Levophed (4 mg/250 mL D5W 4 mcg/min Route: IV; Rate: calculated rate; Site: right ph femoral; 14:00 Follow up: Response: No adverse reaction; IV Status: Infusion continued upon admission ph 10:30 Drug: D50W 50 ml Route: IVP; Site: right femoral; ph 12:00 Follow up: Response: No adverse reaction ph 10:33 Drug: Insulin Regular Human 10 units {Co-Signature: ss (Eda Izquierdo RN).} Route: IVP; ph Site: right femoral; 11:00 Follow up: Response: No adverse reaction ph 10:35 Drug: Sodium Bicarbonate 1 amp Route: IVP; Site: right femoral; ph 12:00 Follow up: Response: No adverse reaction ph 10:35 Drug: Calcium Gluconate 1 grams Route: IVPB; Infused Over: 10 mins; Site: right femoral;ph 11:30 Follow up: Response: No adverse reaction; IV Status: Completed infusion ph 10:35 Drug: Albuterol - atroVENT (3:1) (2.5 mg - 0.5 mg) 3 ml Route: Nebulizer; ph 12:00 Follow up: Response: No adverse reaction ph 10:45 Drug: NS 0.9% 1000 ml Route: IV; Rate: 1 bolus; Site: right antecubital; ph 12:00 Follow up: Response: No adverse reaction; IV Status: Completed infusion ph 11:10 Drug: Versed 4 mg Route: IVP; Site: right femoral; ph 13:00 Follow up: Response: No adverse reaction ph 11:11 Drug: Chaparro-Synephrine 100 mcg/min Route: IV; Rate: calculated rate; Site: right femoral; ph 14:00 Follow up: Response: No adverse reaction; Blood pressure is elevated; IV Status: ph Infusion continued upon admission 12:05 Drug: Cefepime 1 grams Route: IVPB; Rate: 200 ml/hr; Infused Over: 30 mins; Site: right ph femoral; 12:06 Drug: vancoMYCIN 1 grams Route: IVPB; Infused Over: 2 hrs; Site: right femoral; ph 14:00 Follow up: Response: No adverse reaction; IV Status: Completed infusion ph 12:15 Drug: Versed 3 mg Route: IVP; Site: right femoral; ss 13:00 Follow up: Response: No adverse reaction ph 13:52 Drug: Versed 4 mg Route: IVP; Site: right femoral; ph 14:00 Follow up: Response: No adverse reaction ph Point of Care Testing: Blood Glucose: 09:18 Blood Glucose: 205 mg/dL; ss Ranges: Critical Glucose Levels:Adult <50 mg/dl or >400 mg/dl <40 mg/dl or >180 mg/dl Disposition: 01/27/18 10:21 Hospitalization ordered by Ortega Weaver for Inpatient Admission. Preliminary diagnosis are Acidosis, Respiratory failure, unspecified, Respiratory failure, unspecified with hypercapnia, Hyperkalemia, Acute kidney failure, Hypotension, Hypothermia. - Bed requested for Intensive Care Unit. - Status is Inpatient Admission. ss - Condition is Guarded. - Problem is new. - Symptoms are unchanged. UTI on Admission? No Signatures: Dispatcher [employer] Maria D Steen RN RN sv Anderson, Corey, MD MD cha Smirch, Shelby, RN RN ss Hall, Patricia, RN RN ph Herrera, Deanna [facility] Cat Quiñones RN ss Corrections: (The following items were deleted from the chart) 10:29 10:21 Hospitalization Ordered by Ortega Weaver MD for Inpatient Admission. [facility] Preliminary diagnosis is Acidosis; Respiratory failure, unspecified; Respiratory failure, unspecified with hypercapnia; Hyperkalemia; Acute kidney failure. Bed requested for Intensive Care Unit. Status is Inpatient Admission. Condition is Guarded. Problem is new. Symptoms are unchanged. UTI on Admission? No. toya 10:51 10:29 01/27/2018 10:21 Hospitalization Ordered by Ortega Weaver MD for Inpatient toya Admission. Preliminary diagnosis is Acidosis; Respiratory failure, unspecified; Respiratory failure, unspecified with hypercapnia; Hyperkalemia; Acute kidney failure; Hypotension. Bed requested for Intensive Care Unit. Status is Inpatient Admission. Condition is Guarded. Problem is new. Symptoms are unchanged. UTI on Admission? No. toya 11:25 10:51 01/27/2018 10:21 Hospitalization Ordered by Ortega Weaver MD for Inpatient eb Admission. Preliminary diagnosis is Acidosis; Respiratory failure, unspecified; Respiratory failure, unspecified with hypercapnia; Hyperkalemia; Acute kidney failure; Hypotension; Hypothermia. Bed requested for Intensive Care Unit. Status is Inpatient Admission. Condition is Guarded. Problem is new. Symptoms are unchanged. UTI on Admission? No. toya 14:13 11:25 01/27/2018 10:21 Hospitalization Ordered by Ortega Weaver MD for Inpatient ss Admission. Preliminary diagnosis is Acidosis; Respiratory failure, unspecified; Respiratory failure, unspecified with hypercapnia; Hyperkalemia; Acute kidney failure; Hypotension; Hypothermia. Bed requested for Intensive Care Unit. Status is Inpatient Admission. Condition is Guarded. Problem is new. Symptoms are unchanged. UTI on Admission? No. eb
--- NOTE | 2018-01-27 10:22 | ER ---
Nurse's Notes [facility] Name: Chey Kay Age: 72 yrs Sex: Female : 1945 Arrival Date: 01/27/2018 Time: 09:21 Bed 4 Private MD: Diagnosis: Acidosis;Respiratory failure, unspecified;Respiratory failure, unspecified with hypercapnia;Hyperkalemia;Acute kidney failure;Hypotension;Hypothermia Presentation: 01/27 09:13 Presenting complaint: EMS states: Called out for "foaming at the mouth". On arrival, EMS reports patient was unresponsive with shallow respirations and faint pulse. Shortly after arrival, patient became apneic and pulseless. CPR initiated immediately, placed on mechanical CPR device. 1 shock from AED delivered, Asystole. Pt arrived to ER receiving mechanical compression and intubated with Saqib tube. Care prior to arrival: Glucose check: 119. Compressions began prior to arrival. 09:13 Method Of Arrival: EMS: [facility] 09:13 Acuity: RANDALL 1 12:35 Transition of care: patient was not received from another setting of care. Onset of ph symptoms was January 27, 2018. Risk Assessment: Do you want to hurt yourself or someone else? Other: pt unresponsive. Initial Sepsis Screen: Does the patient meet any 2 criteria? Temp <36.0*C (96.8*F)) or > 38.3*C (100.4*F). Mean Arterial Pressure (MAP) < 65. Altered Mental Status. Yes Does the patient have a suspected source of infection? No. Patient's initial sepsis screen is negative. Historical: - Allergies: 12:21 NKDA; ph - Home Meds: 12:21 Albuterol Inhl [Active]; citalopram 20 mg tab [Active]; hydrocodone-acetaminophen ph 7.5-325 mg Oral tab for Pain [Active]; ProAir HFA inhalation [Active]; tramadol 50 mg Oral tab 2 tabs every 6 hours for Pain [Active]; - PMHx: 12:21 COPD; Hepatitis; ph - PSHx: 12:21 Appendectomy; Hernia repair; ph - Immunization history:: Adult Immunizations unknown. - Social history:: Smoking status: unknown. - Family history:: not pertinent. - Ebola Screening: : No symptoms or risks identified at this time. Screenin:59 Abuse screen: Denies threats or abuse. Denies injuries from another. Nutritional ph screening: No deficits noted. Tuberculosis screening: No symptoms or risk factors identified. Fall Risk None identified. Assessment: 09:13 CPR assessment: unresponsive, Pt came to ED intubated with saqib tube. Replaced by 7.5 ss ET tube successfully by Dr. Wiggins at 0917. Cardiac rhythm is asystole. 09:19 Reassessment: pulse check: palpable pulse noted to R femoral, CPR discontinued. ss 09:30 General: Appears in no apparent distress. uncomfortable, Behavior is unresponsive. ph Pain: Unable to use pain scale. Patient is intubated. Patient is unresponsive. Neuro: Level of Consciousness is unresponsive, Oriented to none. Cardiovascular: Capillary refill is sluggish in bilateral fingers Rhythm is sinus tachycardia. Respiratory: Airway is patent via oral intubation Trachea midline Respiratory effort is even, Respiratory pattern is symmetrical, Sputum is thick. GI: Abdomen is distended, Bowel sounds diminished in right upper quadrant, left upper quadrant, right lower quadrant and left lower quadrant surgical site w/ sutures in place noted to center of upper abdomen, dark purple bruising noted. Derm: Skin is fragile, is thin, Skin is. Musculoskeletal:. 10:30 Reassessment: Patient appears in no apparent distress at this time. Pt remains ph intubated and sedated, BP improving after IV medications, awaiting CT scan. 11:07 Reassessment: BP remains unstable at 93/37, waiting forBP to improve before taking to ph CT. 11:25 Reassessment: Patient appears in no apparent distress at this time. No changes from ph previously documented assessment. Pt taken to CT, on monitor, accompanied by RN. 12:15 Reassessment: Patient appears in no apparent distress at this time. No changes from ph previously documented assessment. Family at bedside. 12:33 Reassessment: Patient appears in no apparent distress at this time. Pt remain ph intubated, VS improved/stable at this time, report called to ORALIA Shen in ICU. 13:15 Reassessment: Patient appears in no apparent distress at this time. No changes from ph previously documented assessment. Radiology at bedside for CXR to verify plcmnt of ET and OG tubes. Vital Signs: 09:33 BP 120 / 91; Pulse 117; Resp 20; Pulse Ox 100% on 50% FiO2 ETT vent; dh3 09:36 BP 125 / 72; Pulse 113; Resp 20; Pulse Ox 100% on 50% FiO2 ETT vent; dh3 09:39 BP 122 / 69; Pulse 110; Resp 20; Pulse Ox 100% on 50% FiO2 ETT vent; dh3 09:42 BP 116 / 56; Pulse 108; Resp 20; Pulse Ox 100% on 50% FiO2 ETT vent; dh3 09:51 BP 76 / 55; Pulse 100; Resp 20; Pulse Ox 100% on 50% FiO2 ETT vent; dh3 09:54 BP 67 / 35; Pulse 97; Resp 20; Pulse Ox 99% on 50% FiO2 ETT vent; dh3 10:15 BP 60 / 30; Pulse 76; Resp 18; Pulse Ox 99% on 50% FiO2 ETT vent; ph 10:30 BP 70 / 23; Pulse 70; Resp 20; Temp 96.7(C); Pulse Ox 100% on 50% FiO2 ETT vent; ph 10:45 BP 93 / 37; Pulse 70; Resp 20; Temp 96.5(A); Pulse Ox 100% on 50% FiO2 ETT vent; ph 11:00 BP 115 / 51; Pulse 74; Resp 20; Temp 96.3(C); Pulse Ox 100% on 50% FiO2 ETT vent; ph 11:15 BP 128 / 61; Pulse 74; Resp 20; Temp 96.4(C); Pulse Ox 100% on 50% FiO2 ETT vent; ph 11:30 BP 137 / 78; Pulse 72; Resp 20; Temp 96.1; Pulse Ox 100% on 50% FiO2 ETT vent; ph 11:45 BP 129 / 66; Pulse 79; Resp 20; Temp 96.1(C); Pulse Ox 100% on 50% FiO2 ETT vent; ph 12:00 BP 131 / 60; Pulse 75; Resp 20; Temp 96.2(C); Pulse Ox 100% on 50% FiO2 ETT vent; ph 12:07 BP 135 / 57; Pulse 85; Resp 20; Temp 96.2(C); Pulse Ox 100% on 50% FiO2 ETT vent; ph 12:15 BP 126 / 56; Pulse 88; Resp 20; Temp 96.2; Pulse Ox 100% on 50% FiO2 ETT vent; ph 12:30 BP 118 / 54; Pulse 81; Resp 20; Temp 96.4(C); Pulse Ox 100% on 50% BiPAP; ph 12:45 BP 104 / 59; Pulse 84; Resp 20; Temp 96.5(C); Pulse Ox 100% on 50% FiO2 ETT vent; ph 13:00 BP 82 / 52; Pulse 94; Resp 20; Temp 96.7(C); Pulse Ox 100% on 50% FiO2 ETT vent; ph 13:15 BP 94 / 73; Pulse 73; Resp 20; Temp 96.8(C); Pulse Ox 100% on 50% FiO2 ETT vent; ph 13:30 BP 118 / 60; Pulse 87; Resp 20; Temp 96.8(C); Pulse Ox 100% on 50% FiO2 ETT vent; ph 13:51 BP 113 / 60; Pulse 97; Resp 20; Temp 97.4; Pulse Ox 100% on 50% FiO2 ETT vent; Weight ph 58.97 kg; Height 5 ft. 3 in. (160.02 cm); 13:51 Body Mass Index 23.03 (58.97 kg, 160.02 cm) ph [place] Coma Score: 09:18 Eye Response: none(1). Verbal Response: none(1). Motor Response: none(1). Total: 3. ED Course: 09:19 Inserted saline lock: 20 gauge in right antecubital area, using aseptic technique. 3 Blood collected. 09:20 Assisted provider with intubation using 7.5 mm ETT via oral route. ET tube secured at ph 23cm at the lips. Set up intubation tray. Intubated by Hi iWggins MD Placement verified by CXR, CO2 detector w/ + color change, auscultating bilateral breath sounds, Patient tolerated well. 09:21 Patient arrived in ED. 09:31 Triage completed. 09:31 Initial lab(s) drawn, by or, sent to lab. dh3 09:34 Hi Wiggins MD is Attending Physician. [facility] 09:34 Assisted provider with central line placement. Set up central line tray. Triple lumen ss line placed in right femoral. Line placed by Hi Wiggins MD Placement verified by blood return, Dressed with 4X4s, Tape, Tegaderm, Blood was collected. Patient tolerated Pt intubated and sedated. 09:40 XRAY Chest (1 view) In Process Unspecified. EDMS 09:45 NGT: inserted 16 Fr. other via oral route verified placement of air over stomach, to ph intermittent suction. 10:00 Hummel cath inserted, using sterile technique, 16 Fr., by or, balloon inflated, to ph gravity drainage, Criticore Hummel inserted. 10:19 Ortega Weaver MD is Hospitalizing Provider. toya 10:27 EKG done, by ED staff, reviewed by Hi Wiggins MD. dh3 11:07 Majo Dong RN is Primary Nurse. ph 11:35 CT completed. Patient moved to CT via stretcher. Patient moved back from CT. cw1 12:36 Patient has correct armband on for positive identification. Placed in gown. Bed in low ph position. Call light in reach. Side rails up X2. gambling monitor on. Pulse ox on. NIBP on. Warm blanket given. One-on-one care X 180 minutes. 12:37 Arm band placed on. ph 13:15 Patient admitted, IV remains in place. ph Administered Medications: 09:17 Drug: EPINEPHrine 0.1mg/mL 1:10,000 1 mg Route: IVP; Site: right antecubital; ss 10:00 Follow up: Response: No adverse reaction ph 09:18 Drug: NS 0.9% 1000 ml Route: IV; Rate: 1 bolus; Site: right antecubital; ss 10:30 Follow up: Response: No adverse reaction; IV Status: Completed infusion ph 09:18 Drug: Sodium Bicarbonate 1 amp Route: IVP; Site: right antecubital; ss 10:30 Follow up: Response: No adverse reaction ph 09:30 Drug: NS 0.9% 1000 ml Route: IV; Rate: 1000 ml; Site: right femoral; ph 10:30 Follow up: Response: No adverse reaction; IV Status: Completed infusion ph 10:00 Drug: Levophed (4 mg/250 mL D5W 4 mcg/min Route: IV; Rate: calculated rate; Site: right ph femoral; 14:00 Follow up: Response: No adverse reaction; IV Status: Infusion continued upon admission ph 10:30 Drug: D50W 50 ml Route: IVP; Site: right femoral; ph 12:00 Follow up: Response: No adverse reaction ph 10:33 Drug: Insulin Regular Human 10 units {Co-Signature: ss (Eda Izquierdo RN).} Route: IVP; ph Site: right femoral; 11:00 Follow up: Response: No adverse reaction ph 10:35 Drug: Sodium Bicarbonate 1 amp Route: IVP; Site: right femoral; ph 12:00 Follow up: Response: No adverse reaction ph 10:35 Drug: Calcium Gluconate 1 grams Route: IVPB; Infused Over: 10 mins; Site: right femoral;ph 11:30 Follow up: Response: No adverse reaction; IV Status: Completed infusion ph 10:35 Drug: Albuterol - atroVENT (3:1) (2.5 mg - 0.5 mg) 3 ml Route: Nebulizer; ph 12:00 Follow up: Response: No adverse reaction ph 10:45 Drug: NS 0.9% 1000 ml Route: IV; Rate: 1 bolus; Site: right antecubital; ph 12:00 Follow up: Response: No adverse reaction; IV Status: Completed infusion ph 11:10 Drug: Versed 4 mg Route: IVP; Site: right femoral; ph 13:00 Follow up: Response: No adverse reaction ph 11:11 Drug: Chaparro-Synephrine 100 mcg/min Route: IV; Rate: calculated rate; Site: right femoral; ph 14:00 Follow up: Response: No adverse reaction; Blood pressure is elevated; IV Status: ph Infusion continued upon admission 12:05 Drug: Cefepime 1 grams Route: IVPB; Rate: 200 ml/hr; Infused Over: 30 mins; Site: right ph femoral; 12:06 Drug: vancoMYCIN 1 grams Route: IVPB; Infused Over: 2 hrs; Site: right femoral; ph 14:00 Follow up: Response: No adverse reaction; IV Status: Completed infusion ph 12:15 Drug: Versed 3 mg Route: IVP; Site: right femoral; ss 13:00 Follow up: Response: No adverse reaction ph 13:52 Drug: Versed 4 mg Route: IVP; Site: right femoral; ph 14:00 Follow up: Response: No adverse reaction ph Point of Care Testing: Blood Glucose: 09:18 Blood Glucose: 205 mg/dL; ss Ranges: Outcome: 09:30 Outcome Resuscitation successful ph 10:21 Decision to Hospitalize by Provider. toya 14:13 Patient left the ED. ss 14:13 Admitted to ICU accompanied by nurse, via stretcher, room 7, with oxygen, on monitor, ph with chart, Report called to ORALIA Shen 14:13 critical Signatures: Dispatcher [employer] Hi Zhou MD MD cha Smirch, Shelby, ORALIA RN pratik Duran, Anabel 1 Majo Dong RN RN norma Macias, Casie 3 Eda Izquierdo RN
[2018-01-27] MEDS ORDERED: ALBUTEROL 2.5 MG/3 ML NEB SOL ONE (10:30)
[2018-01-27] MEDS ORDERED: INSULIN -REGULAR HUMAN 50 UNIT/0.5 ML ML ONE (10:30)
[2018-01-27] MEDS ORDERED: IPRATROPIUM BROM 0.5MG/2.5ML ONE (10:30)
[2018-01-27] MEDS ORDERED: CEFEPIME/SWI 1gm 1 GM/10 ML SYR IV ONE (10:45)
[2018-01-27] MEDS ORDERED: MIDAZOLAM HCL 2 MG/2 ML INJ ONE ×3 (10:59→13:51)
[2018-01-27] MEDS ORDERED: NA CHLORIDE 0.9% 2,000 ML ONE (10:59)
[2018-01-27] MEDS ORDERED: CALCIUM GLUCONATE 1gm/100 ML NS (4.65 mEq/100mL) IV ONE ×2 (11:00)
[2018-01-27 11:27] LABS: Platelet Estimate ADEQ; Urine White Blood Cell Casts OK
[2018-01-27 11:28] LABS: Blood Morphology Comment NOT SEEN (NOT SEEN)
[2018-01-27 11:32] LABS: Potassium 4.2 mmol/L (3.5-5.1)
--- NOTE | 2018-01-27 12:03 | RAD REPORT ---
EXAM DESCRIPTION: CT - Head C Spine Cap Wo Con - 01/27/2018 11:36 am CLINICAL HISTORY: Unknown injury, CPR in progress, head, neck, chest and abdomen injury COMPARISON: CT imaging January 05 TECHNIQUE: Axial [address] head images were obtained. Axial [address] cervical spine images were obtain ed with sagittal and coronal reconstruction images reviewed. Axial 5 mm images of the chest, abdomen and pelvis were obtained. All CT scans are performed using dose optimization technique as appropriate and may include automated exposure control or mA/KV adjustment according to patient size. FINDINGS: No intracranial hemorrhage, mass or edema. No midline shift or abnormal fluid collection. Mastoid air cells and paranasal sinuses are clear. No skull fracture. Physiologic calcifications are present. A 9 millimeter calcified mass inner table right parietal bone believed to be an incidental meningioma. A 15 millimeter calcification along the midline parietal falx could be physiologic calcif ication warrant additional meningioma, also incidental. Cervical bodies are normal in height and alignment. No fracture or acute bone finding.C3-4 disc space narrowing present with posterior endplate spurring. Left foraminal encroachment changes are present. No prevertebral soft tissue thickening or paraspinal mass.Central canal detail is inherently limited on CT imaging. Atelectasis changes or scarring changes are present at each base. No edema, infiltrate or acute lung parenchymal process seen. Emphysema changes are present in the upper lung bhandari. No mediastinal mass or hematoma. No hilar adenopathy or mass. Heart size is normal. No pericardial thickening or effus ion. Aorta and pulmonary arterial tree normal size but cannot be further assessed on noncontrast imag ing. Lateral right fourth and fifth rib fractures are present, nondisplaced. No left-sided rib fractu res confirmed. No pneumothorax or pulmonary contusion. Pleural thickening and nodularity seen medial left midlung field. No pathologic bone process. Pectus excavatum deformity present. NG tube tip terminates at the distal esophagus. Endotracheal tube tip is at the origin of the right m ainstem bronchus. No acute injury to the solid abdominal viscera. No hydronephrosis or acute renal parenchymal process seen. Gallbladder and biliary tree are unremarkable. Gallstones can be occult. An acute bowel injury is not identified. In the subcutaneous fat midline upper abdomen several punctate air densities are p resent along with soft tissue opacification. This could be medication injection site. No mass or bulk y lymphadenopathy no ascites or omental thickening. There is minimal congestion or edema in the midl ine fat. Patient may have a very small supraumbilical hernia. Urinary bladder is contracted around a Hummel catheter. No acute bone finding of the abdomen or pelvis. Degenerative changes are present. Vas cular calcifications are present. IMPRESSION: No hemorrhage, edema or acute intracranial finding. Patient has small dural calcified ma sses that are probably incidental meningiomas. ET tube tip is at the origin of the right mainstem bronchus. NG tube tip terminates at the distal eso phagus. Atelectasis changes are present with no pulmonary contusion, mass for infiltrate. Nondisplaced right fourth and fifth rib fractures possibly rated to CPR. No hematoma, mass or significant mediastinal process. No acute finding of the solid abdominal viscera or bowel. Air in soft tissue stranding in the midline upper abdominal subcutaneous fat. This may be hemorrhage in air from medication injection. No significant CT Abdomen and Pelvis finding.
[2018-01-27] MEDS ORDERED: VANCOMYCIN 1 GM/250 ML BAG ONE (12:04)
[2018-01-27] MEDS ORDERED: LORazepam 2 MG/ML VIAL IV PRN (12:55)
[2018-01-27] MEDS ORDERED: MIDAZOLAM HCL 2 MG/2 ML INJ IV PRN (12:55)
[2018-01-27] MEDS ORDERED: FENTANYL CITR 100 MCG/2 ML IV PRN (12:55)
[2018-01-27] MEDS ORDERED: PROPOFOL 1,000 MG/100 ML VIAL IV PRN (12:55)
[2018-01-27] MEDS ORDERED: HALOPERIDOL LACT 5 MG/ML INJ IV PRN (12:55)
--- NOTE | 2018-01-27 13:38 | RAD REPORT ---
EXAM DESCRIPTION: RAD - Chest Single View - 01/27/2018 1:30 pm CLINICAL HISTORY: Unresponsive, intubation COMPARISON: January 27 TECHNIQUE: AP portable chest image was obtained 1305 hours . FINDINGS: Endotracheal tube is in place with the tip mid aortic arch. NG tube tip is near the GE andreea ction. Side port of the tubing is distal esophagus. Resuscitation paddles are in place. No new lung p arenchymal process. No pulmonary edema. Heart size within normal range. No vascular engorgement. No m easurable pleural effusion and no pneumothorax. No gross bony abnormality seen. No acute aortic findi ngs suspected. IMPRESSION: ET tube has been retracted slightly to mid aortic arch level 2 cm above [place]. Tip of the NG tube is at the GE junction with side port remaining in the distal esophagus. No new or progressive cardiopulmonary finding.
[2018-01-27] MEDS ORDERED: MIDAZOLAM HCL 100 MG in NA CHLORIDE 0.9% 80 ML IV PRN (14:34)
[2018-01-27] MEDS ORDERED: NA CHLORIDE 0.9% 1,000 ML IV SCH (15:00)
[2018-01-27] MEDS: NOREPINEPHRINE 4 MG in D5W 250 ML IV PRN ×2 (15:41→20:45)
[2018-01-27] MEDS ORDERED: VANCOMYCIN 500 MG in NA CHLORIDE 0.9% 100 ML IVPB ONE (15:45)
[2018-01-27] MEDS: HYDROCORTISONE SUC 100 MG INJ IV SCH (16:27)
[2018-01-27 16:48] LABS: Arterial Blood Carboxyhemoglob 1.4 % (0-1.5); Blood Gas Oxyhemoglobin 97.5 % (94-97); Blood O2 Saturation 99.6 % (92-98.5)
[2018-01-27] MEDS: NA CHLORIDE 0.9% 1,000 ML IV SCH (17:04)
[2018-01-27 17:09] LABS: Urine Protein/Creatinine Ratio 2.6 ratio (<0.15)
--- NOTE | 2018-01-27 17:39 | HP ---
Date of Admission: 01/27/2018 Reason For Admission: Respiratory failure, hypertension, hypothermia, hyperkalemia. History Of Present Illness: This is a 72-year-old female with history of multiple medical problems i ncluding COPD, emphysema, hepatitis, who had recently underwent incarcerated hernia repair surgery on January [address] Mueller electively, found to have foaming out of her mouth. EMS were called and the pa tient found to be unresponsive with shallow respiration and faint pulse. Shortly after arrival, johny ent became apneic and pulseless. CPR started and the patient was placed on mechanical CPR device. O ne shock delivered. The patient was found to be weak and asystole, brought to the ER while receiving mechanical compression and was intubated with a Saqib tube. In the ER, the patient was intubated. S he was noted to be hypotensive, and she was started on pressors with Levophed and phenylephrine. Her ABG showed severe respiratory acidosis with pH of 7.1, pO2 of 87, bicarb 25. Labs showed CBCs, whit e blood cell 4.9, no anemia. Chemistry showed acute renal failure with creatinine 4.4, potassium 4.2 , AST of 816, ALT of 753, troponin of 0.96. BNP of 4189. The patient had CAT scan of the head, ches t, abdomen, and pelvis, and CT of the head showed a 9 mm calcified mass in the right parietal bone, w hich they thought was incidental meningioma. CT of the neck did not show any acute findings. CT of the chest as well but that was without contrast, so we could not even tell if the patient has PE. CT of abdomen did not show any acute injury in the abdomen. She had gallstones. There was no hemorrha ge, edema, or acute intracranial findings. The patient has small dural calcified masses that are pro bably incidental meningioma. Atelectasis noted on CT of the chest. There was air and soft tissue st randing in the midline of abdomen subcutaneous fat. This may be hemorrhage emitting from medication injection. Otherwise, no acute findings. The patient transferred to the floor. Currently, she had generalized seizure. Review of systems otherwise unobtainable. Past Medical History: Hepatitis from record. Past Surgical History: Significant for appendectomy besides the hernia repair from the record. Allergies: NONE. Medication: Home medication, Celexa, Vicodin, ProAir, tramadol, ?prednisone. Past Surgical History: appendectomy and hernia repair. From the record. Family History: Unobtainable. Social History: Unobtainable, but apparently patient is . Review of Systems: Unobtainable. Physical Examination: Vital Signs: Currently, blood pressure is 135/57, pulse 85, respiratory rate 20, temperature 96.2, s aturating 100% on the vent. She is sedated and intubated, not responsive. Does not look comfortable HEENT: Atraumatic, normocephalic. PERRLA. Oral mucosa is dry. Neck: Supple. No JVP. No carotid bruits. CHEST: Diffuse rhonchi. No crackles. Heart: Regular rate and rhythm. S1, S2 normal. No gallop. Abdomen: Soft, nontender. No masses. Large hematoma noted with dressing. Extremities: No clubbing. No cyanosis or edema. Neurologic: Deferred as patient was not responsive. Laboratory Data: CBC was normal with white blood cells 4.9. No anemia. Repeat ABG is pending. ABG in the morning noted. Chemistry repeated, sodium 148, potassium 4.2, chloride 112, carbon dioxide 2 6, BUN 24, creatinine 1.3. Glucose 249. CT as mentioned above. Assessment/plan: A 72-year-old female with history of chronic obstructive pulmonary disease, hepatit is, recent hernia repair, found to be unresponsive, underwent CPR, arrived to the emergency room in r espiratory failure. 1.Respiratory failure. Etiology? At this point, the patient is not stable to have the CT angio to rule out PE, but I will proceed with Doppler of lower extremity to make sure there is no DVT. I will put her on DVT prophylaxis dose of Lovenox. We will continue patient on the vent. 2.Septic shock. Etiology? Cultures were redone. The patient already received cefepime. We will a dd vancomycin for broad-spectrum coverage. The patient on Levophed and phenylephrine. We will titra te to remain above 55. 3.Generalized seizure, etiology? Brain damage secondary to cardiac arrest. There was no Neurology available on consult, so we will not able to do EEG until Monday. I conveyed that to the family, and they are okay with that. In the meantime, the patient is receiving p.r.n. Ativan, and she will be o n Versed drip. 4.Elevated liver enzymes most likely shock liver. We will follow that. 5.Elevated troponin most likely secondary to cardiac arrest. We will follow that. 6.Hyperkalemia, resolved. 7.Acute renal failure. Improved. Creatinine down to 1.3. GFR still at 40. Nephrology following, a ppreciate on both. 8.The patient was on oral prednisone at home. Solu-Cortef started by Nephrology, which I agree with . 9.Prognosis poor. Discussed with family, son and . Provided emotional support. ROGELIO/CHARLEEL Voice ID: [id number]
--- NOTE | 2018-01-27 18:51 | CON ---
Date of Consultation: 01/27/2018 Additional Consulting Physician: Ortega Weaver M.D. Reason For Consultation: Elevated BUN and creatinine, hyperkalemia, and acidosis. History Of Present Illness: All the information has been obtained from the record as the patient is intubated. This is a 72-year-old female with significant past medical history of hypertension, no me ntion of any other medical. The patient was found foaming with seizure, had CPR on the site of 20 mi nute and in the ER for 10 minute, received epinephrine and bicarb 2 amp and stabilized the patient. The patient was started on IV fluid. The patient in the ICU has some seizure activity. The patient apparently admitted to the hospital on the of this month for hiatal hernia repair by Dr. Mueller. Past Medical History: Include hypertension. Past Surgical History: Hiatal hernia. Home Medications: Include, 1.Prednisone. 2.Clonazepam. 3.Hydrocodone. 4.Brovana. Current Medication In The Hospital: Include haloperidol, norepinephrine, and phenylephrine. Review of Systems: Nonobtainable. Allergies: NO KNOWN DRUG ALLERGIES. Social History: Nonobtainable. Physical Examination: Vital Signs: When I saw the patient, the patient was on vent. Blood pressure 113/60, pulse of 97, a febrile. Chest: Clear to auscultation. Heart: S1, S2. Regular. Abdomen: Soft, nontender. Extremities: No edema. Neuro: The patient on vent. Contracted pupil, reactive to light. Jerk movement involved the upper extremity and the face. Laboratory Data: Sodium 148, potassium 4.2, bicarb 26, BUN 24, creatinine 1.3, glucose 249, and calc ium 7.2. Troponin 0.9. CK 193. AST 806, ALT 753. Earlier potassium 7.2. WBC 12.9, H and H 12.8/4 0.1. ABG; pH 7.1, CO2 of 87, and O2 of 556. Assessment And Plan: 1.Acute kidney injury secondary to poor perfusion, acute tubular necrosis, secondary to shock: Cont inue hydration for the patient. I am going to maintain the patient on normal saline 100 per hour. 2.Shock, multifactor, possible secondary to seizure, secondary to cardiogenic, secondary possible to adrenal insufficiency. I am going to start the patient on hydrocortisone, start aggressive hydratio n, and we will monitor. 3.Altered mental status. Seizure as by primary. We will follow up. Case discussed with Dr. Anthony gil, agrees on the plan. 4.Hyperkalemia. Mostly secondary to seizure. Repeated lab is resolved. We will follow up. 5.Hypercapnic respiratory acidosis secondary to respiratory failure. We will follow up with the sheryl lindo MA/ELDER Voice ID: [id number] Report ID: [id number]
[2018-01-27] MEDS: FAMOTIDINE 20 MG/2 ML VIAL IV SCH (20:27)
[2018-01-27] MEDS ORDERED: VANCOMYCIN 1 GM in NA CHLORIDE 0.9% 500 ML IVPB SCH (21:00)
[2018-01-28] MEDS: NA CHLORIDE 0.9% 1,000 ML IV SCH ×3 (01:15→13:36)
[2018-01-28] MEDS: HYDROCORTISONE SUC 100 MG INJ IV SCH ×3 (01:15→17:25)
[2018-01-28] MEDS ORDERED: WATER FOR INJ,STERILE 10 ML ONE (01:17)
[2018-01-28 05:29] LABS: Arterial Blood Carboxyhemoglob 1.4 % (0-1.5); Blood Gas Oxyhemoglobin 96.5 % (94-97); Blood O2 Saturation 98.6 % (92-98.5)
[2018-01-28 05:47] LABS: Albumin 2.4 g/dL (3.4-5.0); Phosphorus 1.9 mg/dL (2.5-4.9); Potassium 3.3 mmol/L (3.5-5.1)
[2018-01-28 06:20] LABS: Magnesium 1.3 mg/dL (1.8-2.4)
[2018-01-28] MEDS ORDERED: Magnesium Sulfate 1gm IVPB 1 GM/50 ML BAG IV ONE ×2 (06:45→13:45)
[2018-01-28] MEDS ORDERED: Magnesium Sulfate 2gm IVPB 2 G/50 ML BAG IV ONE (06:47)
[2018-01-28] MEDS ORDERED: KCL 20 MEQ/100 mL IVPB 20 MEQ/100 ML BAG IV SCH ×2 (07:00→20:00)
[2018-01-28] MEDS ORDERED: POTASSIUM PHOS IN 0.9 % NACL 15 MMOL/250 ML BAG IV ONE (09:00)
[2018-01-28] MEDS ORDERED: MAGNESIUM 50% 2 GM in NA CHLORIDE 0.9% 100 ML IV ONE (09:00)
--- NOTE | 2018-01-28 09:21 | RAD REPORT ---
EXAM DESCRIPTION: VASExtrem Venous W Compress Bil01/27/2018 10:31 pm CLINICAL HISTORY: Bilateral leg swelling COMPARISON: none FINDINGS: The common femoral, superficial femoral, popliteal and posterior tibial veins bilaterally are compressible and demonstrate augmentation. Doppler demonstrates good flow. IMPRESSION: No evidence of deep venous thrombosis involving either lower extremity.
--- NOTE | 2018-01-28 09:30 | EKG ---
Test Date: 2018-01-27 Test Time: 17:46:17 Wire Wrapping Machine Operator: DONATO MEASUREMENT RESULTS: Intervals: Rate: 70 ID: [id number] QRSD: 62 QT: 428 QTc: 462 [place]: P: 75 ID: [id number] QRS: 68 T: -72 INTERPRETIVE STATEMENTS: Sinus rhythm with fusion complexes ST & T wave abnormality, consider anterolateral ischemia Prolonged QT Abnormal ECG Compared to ECG 01/27/2018 17:42:05 ST (T wave) deviation now present Possible ischemia now present Accelerated junctional rhythm no longer present AV dissociation no longer present Left anterior fascicular block no longer present Left ventricular hypertrophy no longer present Early repolarization no longer present Electronically Signed On 01-28-18 09:27:34 CDT by Maciej Solorzano
--- NOTE | 2018-01-28 09:30 | EKG ---
Test Date: 2018-01-27 Test Time: 17:42:05 Boxing And Pressing Supervisor: DONATO MEASUREMENT RESULTS: Intervals: Rate: 70 MN: QRSD: 96 QT: 470 QTc: 507 Mobile: P: MN: QRS: -58 T: 114 INTERPRETIVE STATEMENTS: Sinus rhythm with AV dissociation and Accelerated Junctional rhythm with fusion complexes RSR' or QR pattern in V1 suggests right ventricular conduction delay Left anterior fascicular block Left ventricular hypertrophy with repolarization abnormality Prolonged QT Abnormal ECG Compared to ECG 01/24/2018 08:55:02 Accelerated junctional rhythm now present Fusion complex(es) now present AV dissociation now present RSR' in V1 or V2 now present Left anterior fascicular block now present Electronically Signed On 01-28-18 09:27:56 CDT by Maciej Solorzano
--- NOTE | 2018-01-28 09:32 | EKG ---
Test Date: 2018-01-27 Test Time: 10:21:19 Artist Suspect: DANUTA MEASUREMENT RESULTS: Intervals: Rate: 71 ID: [id number] QRSD: 48 QT: 430 QTc: 467 [place]: P: 80 ID: [id number] QRS: 83 T: -89 INTERPRETIVE STATEMENTS: Normal sinus rhythm Low voltage QRS Septal infarct, age undetermined ST & T wave abnormality, consider anterolateral ischemia Abnormal ECG Compared to ECG 01/24/2018 08:55:02 Low QRS voltage now present Myocardial infarct finding now present ST (T wave) deviation now present Possible ischemia now present T-wave abnormality no longer present Electronically Signed On 01-28-18 09:28:26 CDT by Maciej Solorzano
--- NOTE | 2018-01-28 09:38 | RAD REPORT ---
EXAM DESCRIPTION: Brian Single View01/28/2018 6:07 am CLINICAL HISTORY: Shortness of breath COMPARISON: January 27 FINDINGS: The lungs appear clear of acute infiltrate. The heart is normal size Endotracheal and nasogastric tubes remain in place IMPRESSION: No acute abnormalities displayed
[2018-01-28] MEDS: ENOXAPARIN 30 MG/0.3 ML SQ SCH (12:25)
[2018-01-28 13:23] LABS: Absolute Lymphocytes (CBC) 0.8 K/uL (0.7-4.9); Absolute Monocytes 0.4 K/uL (0.1-1.3); Absolute Neutrophil 13.4 K/uL (1.8-8.0); Basophils % 0.2 % (0-1.3); Hematocrit 35.5 % (36.0-45.0); Lymphocytes % 5.4 % (15.3-44.8); MCV 90.9 fL (80-100); MPV 10.6 fL (7.6-11.3); Monocytes % 2.7 % (3.3-12.3); RBC Red Blood Cell Count 3.91 M/uL (3.86-4.86)
[2018-01-28 13:58] LABS: Albumin 2.4 g/dL (3.4-5.0); Bilirubin Direct 0.1 mg/dL (0-0.2); Bilirubin Total 0.4 mg/dL (0.2-1.0); Protein, Total 5.5 g/dL (6.4-8.2)
--- NOTE | 2018-01-28 16:49 | PN ---
Subjective: Currently, the patient sedated, intubated. No issues overnight. She did not have furth er seizure. She has some twitching this morning, according to the nurse that resolved. Review of Systems: Otherwise unobtainable. Physical Examination: Vital Signs: Blood pressure is 100/47, respiratory rate 20, pulse 81, temperature 98.7, saturating 1 00% on the vent. ABG with a pH of 7.46, pO2 of 112, bicarb 20, O2 sat of 98. The patient is off pre ssor. General: She is sedated and intubated. Looks comfortable. Does not look in any distress. HEENT: Atraumatic, normocephalic. Oral mucosa is dry. Neck: Supple. No JVD. No carotid bruits. Chest: Clear to auscultation with diffuse rhonchi. No expiratory wheezing. Heart: Regular rate and rhythm. S1, S2 normal. No gallop. Abdomen: Soft, nontender. No masses. There is ecchymosis on the wall. Positive bowel sounds. Extremities: No clubbing, cyanosis, or edema. Neurologic exam: Deferred at this point. Laboratory Data: Today, showed CBC not done. CMP with a sodium 146, potassium 7.3, chloride 113, BU N 40, creatinine 1.3, magnesium 1.3, phosphorus 1.9, albumin 2.4. Chest x-ray normal. Assessment/plan: 1.Respiratory failure. Etiology unknown at this point. With asystole required CPR and intubation, unclear about the lower extremity Doppler ordered yesterday but results still pending. If positive w e will proceed with CT angio. The patient is not stable yet to go downstairs for a CT angio. She is currently on DVT prophylaxis with Lovenox. 2.Septic shock. So far, all cultures done and is negative. The patient currently on broad-spectrum antibiotic with vancomycin and cefepime. Blood pressure improved off pressors this morning. 3.Respiratory acidosis, severe resolved, and ABG looks well. 4.Generalized seizure? Tonic-clonic, well on the vent yesterday, resolved once the patient on Verse d for sedation. We will keep her on Versed until tomorrow morning and then will taper down and obtai n Neurology consult and order EEG to evaluate if the patient had anoxic brain injury secondary to her asystolic episode. 5.Elevated liver enzymes. Most likely, shock liver, secondary to systolic episode. I will follow t olya, they are still pending. 6.Elevated troponin most likely secondary to cardiac arrest. We will recheck today. Make sure that it is trending down. 7.Hyperkalemia, resolved. 8.Hypomagnesemia, we will replace, on protocol. 9.Renal failure, improved, creatinine 1.3. 10.We will continue high steroid stress dose as the patient was chronically on oral prednisone as ou tpatient. 11.Prognosis, guarding. 12.I discussed with Dr. Mueller the patient's admission as well, which apparently not related to her r ecent surgery. MT/MODL Voice ID: [id number] Report ID: [id number]
--- NOTE | 2018-01-28 19:22 | PN ---
Date of Progress Note: 01/28/2018 Subjective: The patient was intubated on the Versed. Blood pressure stabilized, weaned from pressor . Physical Examination: Vital Signs: Blood pressure 113/50, pulse of 92. The patient had urine output of 310 over the night , 2500. In the morning has 250 over the last 6 hour. Chest: Clear to auscultation. Heart: S1, S2. Regular. Abdomen: Soft, nontender. Extremities: No edema. Neuro: The patient already on sedation from the neuro point. Laboratory Data: WBC 14.6, H and H 11.7/35.5. Sodium 146, potassium 3.3, bicarb 23, BUN 40, creatin ine 1.3, calcium 7.2, phosphorus 1.9, magnesium 1.3, albumin 2.4. Medications: Current medications, the patient is on include; 1.Cefepime. 2.Vancomycin. 3.Lovenox. 4.Sedation. 5.Pepcid. 6.Hydrocortisone 100 t.i.d. 7.Normal saline 100 per hour. 8.The patient received potassium phosphate. Assessment And Plan: 1.Acute kidney injury secondary to prerenal shock, poor perfusion, ATN, obstruction. Has been ruled out as by the CT. 2.Shock possibly secondary to adrenal insufficiency/cardiac. Continue current treatment. Follow up with the primary. 3.Hypomagnesemia. 4.Hypokalemia. 5.Hypophosphatemia. We will supplement. 6.Hyperkalemia, resolved. 7.Respiratory failure. Continue supportive. We will follow up with the primary. 8.Acidosis, resolved. Case discussed with Dr. Weaver, agreed on the plan. JEFF/ELDER Voice ID: [id number] Report ID: [id number]
[2018-01-28] MEDS: FAMOTIDINE 20 MG/2 ML VIAL IV SCH (20:09)
[2018-01-29] MEDS: HYDROCORTISONE SUC 100 MG INJ IV SCH ×3 (00:55→17:14)
[2018-01-29] MEDS: VANCOMYCIN/NS 1 gm 1 GM/250 ML BAG IV SCH (03:00)
[2018-01-29 04:50] LABS: Arterial Blood Carboxyhemoglob 1.2 % (0-1.5); Blood Gas Oxyhemoglobin 97.1 % (94-97); Blood O2 Saturation 99.1 % (92-98.5)
[2018-01-29 05:20] LABS: Absolute Lymphocytes (CBC) 0.9 K/uL (0.7-4.9); Absolute Monocytes 0.5 K/uL (0.1-1.3); Absolute Neutrophil 14.1 K/uL (1.8-8.0); Basophils % 0.1 % (0-1.3); Hematocrit 34.7 % (36.0-45.0); Lymphocytes % 5.9 % (15.3-44.8); MCH 30.5 pg (27.0-35.0); MCV 90.7 fL (80-100); Monocytes % 3.2 % (3.3-12.3); RBC Red Blood Cell Count 3.83 M/uL (3.86-4.86)
[2018-01-29 07:09] LABS: Albumin 2.3 g/dL (3.4-5.0); Bilirubin Total 0.5 mg/dL (0.2-1.0); Magnesium 2.5 mg/dL (1.8-2.4); Phosphorus 3.2 mg/dL (2.5-4.9); Potassium 4.1 mmol/L (3.5-5.1); Protein, Total 5.4 g/dL (6.4-8.2)
[2018-01-29] MEDS: NA CHLORIDE 0.9% 1,000 ML IV SCH ×2 (08:11→13:00)
[2018-01-29] MEDS: ENOXAPARIN 30 MG/0.3 ML SQ SCH (08:13)
--- NOTE | 2018-01-29 08:16 | RAD REPORT ---
EXAM DESCRIPTION: Brian Single View01/29/2018 6:23 am CLINICAL HISTORY: Shortness of breath COMPARISON: January 28, 2018 FINDINGS: Endotracheal and nasogastric tubes remain in place The lungs appear clear of acute infiltrate. The heart is normal size IMPRESSION: No acute abnormalities displayed
[2018-01-29] MEDS: WATER FOR INJ,STERILE 10 ML IV SCH ×2 (08:17→17:14)
[2018-01-29] MEDS ORDERED: Caclcium Chloride 10% INJ SYR IV ONE (13:07)
[2018-01-29] MEDS ORDERED: D50W 25 GM/50 ML SYRINGE IV ONE (13:08)
[2018-01-29] MEDS ORDERED: EPINEPHrine 1 MG/10 ML SYR IV ONE (13:08)
[2018-01-29] MEDS: ACETYLCYST 20% 800 MG/4 ML VIAL FT SCH ×2 (13:09→21:56)
--- NOTE | 2018-01-29 13:16 | PN ---
Date of Progress Note: 01/29/2018 Subjective: The patient is seen and examined, chart reviewed, and case discussed with RN. The patie nt still unresponsive, however, currently on Versed drip. I spoke with her eldest son. Treatment pl an explained, all questions answered. Review of Systems: Unable to be obtained due to the patient's medical condition. Medications: List reviewed. Objective: Vital Signs: Temperature 96.8, heart rate 76, blood pressure 112/58, respirations 14, O2 saturation 100% on mechanical ventilation, 30% FiO2. General: Unresponsive elderly female, intubated, sedated. CV: S1, S2. Peripheral pulses present. Regular rate and rhythm. No murmurs. Respiratory: mechanical breath sounds. No wheezing Gastrointestinal: Abdomen is soft, nondistended . Positive bowel sounds. Extremities: No clubbing, cyanosis. Mild pedal edema. Neuro: Intubated, sedated, nonresponsive. Laboratory Data: Sodium 148, potassium 4.1, chloride 115, CO2 22, BUN 44, creatinine 1.2, glucose 13 7, and calcium 7.8. AST 928, ALT 2044, albumin 2.3. WBC 15.5, H and H 11.7, 34.7, platelets 189, an d neutrophils 90%. ABG, pH 7.44, pCO2 28, pO2 143, and bicarb 18. Blood cultures, no growth to date . Urine culture shows no growth. Chest x-ray, personally reviewed, shows no acute abnormalities. Assessment: A 72-year-old female with; 1.Acute respiratory failure, on mechanical ventilation, currently sedated. We will wean off Versed and start on weaning trials. 2.Status post cardiac arrest. The patient was asystolic, had CPR and intubation done. Unclear etio logy. The patient does have chronic obstructive pulmonary disease, on oxygen. She was found down fo r approximately 30 minutes. We will obtain CT angio to rule out pulmonary embolism. Doppler sono wa s negative for deep venous thrombosis. 3.Septic shock. Currently, we will continue broad-spectrum IV antibiotics. Cultures negative to da te. The patient is now off pressors. 4.Shock liver. Liver enzymes elevated secondary to above. 5.Respiratory acidosis, improving. ABG still shows decreased bicarb, but pH 7.44. 6.Possible seizure. EEG has been ordered. Dr. Martinez with neurology has been consulted. Possible a noxic brain injury secondary to asystole. The patient is still nonresponsive. Start weaning off Lux sed and re-evaluate. 7.Elevated troponin level secondary to cardiac arrest. 8.Hyperkalemia, corrected. 9.Hypomagnesemia. We will replace and monitor. 10.Acute kidney injury, improving. Creatinine is normalized. 11.Steroid dependent. The patient was on oral prednisone as outpatient. We will continue stress do se steroids. 12.Gastrointestinal and deep venous thrombosis prophylaxis addressed. 13.Hematoma secondary to possible recent hernia repair. Plan: Obtain CT angio to rule out PE. Continue current treatment. We will discuss with Dr. Mueller. Overall prognosis is very poor. Discussed with family. Currently still full code. No medical meenakshi r of welder fabricator or living will. /ELDER Voice ID: [id number] Report ID: [id number]
--- NOTE | 2018-01-29 15:16 | RAD REPORT ---
EXAM DESCRIPTION: CT - Chest Angio - 01/29/2018 2:14 pm COMPARISON: None. TECHNIQUE: Dynamically enhanced axial 3 mm thick images of the chest were obtained during administra tion of 150 mL Isovue 370 IV contrast. Coronal and oblique reconstruction images were generated and r eviewed using MIP. All CT scans are performed using dose optimization technique as appropriate and may include automated exposure control or mA/KV adjustment according to patient size. FINDINGS: Pulmonary arteries are normal. No emboli or other suspicious finding. No acute or signific ant aorta findings. Fibro emphysematous lung changes are present. No acute infiltrate or mass of the lung parenchyma. Dep endent atelectasis present in each posterior gutter. Trace amount of pleural fluid seen on the right. No pneumothorax. Pleural plaquing changes are present matching the prior examination. No pneumothora x. ET tube is in place. Tip is at the freder[place]. NG tube is in place. Tip is not fully imaged. The tip does extend into the lumen of the stomach. No abnormal mediastinal or hilar masses or lymphadenopathy seen. No chest wall mass or abnormal axill iary lymphadenopathy. IMPRESSION: No pulmonary embolism. No acute thoracic aortic finding. Above detailed pleural and parenchymal findings are not clearly different from comparison.
[2018-01-29] MEDS: FAMOTIDINE 20 MG/2 ML VIAL IV SCH (21:56)
--- NOTE | 2018-01-29 23:02 | CON ---
Date of Consultation: 01/29/2018 Reason: Anoxia, seizure-like activity. History: [id number] lady, had recent abdominal surgery on 01/24, was brought to the emergency depa rtment on the 01/27, after undergoing cardiopulmonary arrest at home. The patient was found foaming at the mouth and unresponsive. ACLS protocol was initiated, down time approximately 30 minutes, 20 m inutes on site, and another 10 in the emergency department. The patient was resuscitated, admitted t o the ICU. After being admitted, the patient had some large amplitude myoclonic type jerking, that h ad been brought under control with Ativan, and was placed on a Versed drip. No neurology was availab le. Versed was stopped at [address] scan of the brain demonstrated findings of calcified meningiom a, but no other abnormality. CT scan of the chest, no evidence for pulmonary emboli. Electroencepha logram demonstrates a discontinuous background that does not react to external stimuli, and had up to 6 cycles per second. No epileptiform activity was recorded. Consultation was requested. Past Medical History: Hypertension. Medications: 1.Lexapro. 2.Brovana. 3.Ativan as needed. 4.Hydrocodone. 5.Klonopin. Social History: Normally independent with activities of daily living. Family History: Noncontributory. Review of Systems: Not properly obtainable. The patient is comatose. Physical Examination: Neurologic: The patient is deeply comatose, intubated, not sedated, does not overbreathe the vent. T here are no spontaneous movements. There is occasional rare rhythmic movement to the right lip, with out any other notable spontaneous motor activity. Pupils are pinpoint, but reactive, weak passive oc ulocephalics. Face symmetric. The patient has pathologic extensor posturing to painful stimuli in t he upper extremities, and no movement in the lower extremities to painful stimuli. Reflexes are trac e. Toes are silent. Pertinent Laboratory Data: White count today, 15,000, hemoglobin 11.7, platelets 189. PH 7.4, creat inine 1.2. Transaminases; AST, ALT 928 and 2044 respectively, which has actually improved from yeste rday. Troponin on 01/28, positive 0.52. 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 I would not recommend initiating an anticonvulsant. Prognosis for likelihood of meaningful neurologi c recovery 2 days post event, given the patient's current neurologic exam is less than 1%. Continue general supportive care, and discuss overall code status with family, would be the primary recommenda tion at present. We will continue to follow with you. NERISSA Voice ID: [id number] Report ID: [id number]
[2018-01-30] MEDS: NA CHLORIDE 0.9% 1,000 ML IV SCH (01:00)
[2018-01-30] MEDS: WATER FOR INJ,STERILE 10 ML IV SCH ×3 (01:26→16:15)
[2018-01-30] MEDS: HYDROCORTISONE SUC 100 MG INJ IV SCH ×3 (01:27→16:14)
--- NOTE | 2018-01-30 04:02 | PN ---
Date of Progress Note: 01/29/2018 Chief Complaint: Acute kidney injury secondary to prerenal azotemia, due to renal hypoperfusion and acute tubular necrosis. The patient has nonoliguric urine output. Renal function has not changed significantly since yesterday, creatinine 1.2. Review of Systems: Unobtainable. The patient is unresponsive, intubated. Physical Examination: Lungs: Clear to auscultation bilaterally. Heart: S1, S2. Abdomen: Soft, benign. Extremities: Minimal edema. Laboratory Data: Sodium 148, potassium 4.1, chloride 115, CO2 22, creatinine 1.2, glucose 137. AST 928, ALT 2044. Impression And Plan: 1. Acute kidney injury, nonoliguric. Continue normal saline. The patient is to have IV contrast. Recommend Mucomyst via NG tube to prevent contrast- induced nephropathy. 2. Hyperkalemia, resolved. 3. Hypomagnesemia. The patient will have replacement. Monitor magnesium level. 4. Respiratory failure. Continue supportive measure with ventilation. 5. Hypophosphatemia. Replacement was ordered. Monitor phosphorus level. EB/MODL Voice ID: [id number] Report ID: [id number] ANDREW
[2018-01-30 05:08] LABS: Absolute Lymphocytes (CBC) 0.6 K/uL (0.7-4.9); Absolute Monocytes 0.5 K/uL (0.1-1.3); Absolute Neutrophil 16.9 K/uL (1.8-8.0); Basophils % 0.2 % (0-1.3); Hematocrit 36.7 % (36.0-45.0); Lymphocytes % 3.5 % (15.3-44.8); MCH 30.3 pg (27.0-35.0); MCV 91.3 fL (80-100); Monocytes % 2.9 % (3.3-12.3); RBC Red Blood Cell Count 4.02 M/uL (3.86-4.86)
[2018-01-30 05:28] LABS: Albumin 2.5 g/dL (3.4-5.0); Bilirubin Total 0.5 mg/dL (0.2-1.0); Magnesium 2.5 mg/dL (1.8-2.4); Phosphorus 3.5 mg/dL (2.5-4.9); Potassium 4.2 mmol/L (3.5-5.1); Protein, Total 5.8 g/dL (6.4-8.2)
[2018-01-30 05:40] LABS: Arterial Blood Carboxyhemoglob 1.1 % (0-1.5); Blood Gas Oxyhemoglobin 96.6 % (94-97); Blood O2 Saturation 98.4 % (92-98.5)
[2018-01-30 05:52] LABS: Blood Morphology Comment NOT SEEN (NOT SEEN); Platelet Estimate ADEQ
--- NOTE | 2018-01-30 07:35 | EEG ---
CHART: [id number] TEST ID#: [id number] DATE OF STUDY: 01-29-2018 THE EEG WAS RECORDED PORTABLE IN THE ICU ON A 14 CHANNEL MACHINE. ELECTRODES WERE APPLIED IN THE USUAL MANNER USING THE INTERNATIONAL 10-20 SYSTEM. THE WAKING BACKGROUND RHYTHM IN THIS RECORD CONSISTS OF POORLY DEVELOPED AND POORLY ORGANIZED WAVES OF 6 HZ., MAXIMAL IN THE POSTERIOR HEAD REGIONS WHICH ARE DISCONTINUOUS AND NON-REACTIVE TO EXTERNAL STIMULI. THERE ARE NO FOCAL OR LATERALIZING FEATURES. NO EPILEPTIFORM ACTIVITY APPEARS. SLEEP DID NOT OCCUR. HYPERVENTILATION WAS NOT PERFORMED. PHOTIC STIMULATION WAS NOT DONE. IMPRESSION: ABNORMAL EEG BECAUSE OF DISCONTINUOUS BACKGROUND WITH INTERSPERSED GENERALIZED BACKGROUND. THE ABOVE INDICATES SEVERE DIFFUSE CEREBRAL DYSFUNCTION.
[2018-01-30] MEDS: ENOXAPARIN 30 MG/0.3 ML SQ SCH (08:15)
[2018-01-30] MEDS: ACETYLCYST 20% 800 MG/4 ML VIAL FT SCH ×2 (08:16→21:24)
--- NOTE | 2018-01-30 15:27 | PN ---
Date of Progress Note: 01/30/2018 Subjective: The patient seen and examined, chart reviewed, and case discussed with RN. Had a long f amily meeting with the along with other family members and separately with the eldest son, joaquin reese has been estranged from the family for the past 4 years. Due to the family dynamics, social work faculty member to work with family to determine the legal decision maker. Overall, the patient has not had any rec overy, likely has anoxic brain injury from her respiratory arrest and has overall poor prognosis. Review of Systems: Unable to obtain due to the patient's medical condition. Medications: List reviewed. Physical Examination: Vital Signs: Temperature 97.5, heart rate 91, blood pressure 152/79, respirations 28, O2 100% on mec hanical ventilation, 30% FiO2. General: Intubated, not sedated, nonresponsive, ill-appearing female. CV: S1, S2. No murmurs. Peripheral pulses present. Respiratory: Mechanical breath sounds. No wheezing. No stridor. Gastrointestinal: Abdomen is soft, nondistended. Hypoactive bowel sounds. Extremities: No clubbing, cyanosis. The patient does have some edema in lower extremities. Neuro: No gag reflex. Does respond to painful stimuli and does not open eyes. Laboratory Data: Sodium 148, potassium 4.2, chloride 118, CO2 24, BUN 51, creatinine 1.10, glucose 1 39, calcium 8.3, phosphorus 3.5, and magnesium 2.5. AST 457, ALT 1628, albumin 2.5. ABG; pH 7.33, p CO2 39.9, pO2 128, and bicarb 20. WBC 18.1, H and H 12.2, 36.7, platelets 225, neutrophils 93%. Cul tures, no growth to date, including blood and urine cultures. Assessment And Plan: A 72-year-old female with; 1.Likely anoxic brain injury. 2.Acute respiratory failure, on mechanical ventilation, off sedation. 3.Status post cardiac arrest. 4.Septic shock. 5.Shock liver. Liver enzymes improving. 6.Acidosis. 7.Possible seizure. EEG shows diffuse slowing, likely consistent with anoxic brain injury. 8.Elevated troponin level secondary to cardiac arrest. 9.Hypermagnesemia. 10.Acute kidney injury. Creatinine normalized. 11.Steroid dependent, on stress dose steroids. 12.Hematoma. Anterior abdominal wall CT reviewed with surgeon, Dr. uMeller, not related to recent sadaf samuel. 13.Gastrointestinal and deep venous thrombosis prophylaxis addressed. Plan: Overall prognosis is very poor. The patient likely has anoxic brain injury. We will discuss with family regarding withdrawal of care. Social Work also aware. CT angio ruled out PE yesterday. Appreciate Dr. Alex and Dr. Martinez's input. /CHARLEEL Voice ID: [id number] Report ID: [id number]
[2018-01-30] MEDS: VANCOMYCIN/NS 1 gm 1 GM/250 ML BAG IV SCH (15:55)
[2018-01-30] MEDS: FAMOTIDINE 20 MG/2 ML VIAL IV SCH (21:24)
[2018-01-30 23:56] VITALS: O2SAT 98
--- NOTE | 2018-01-31 00:20 | PN ---
Date of Progress Note: 01/30/2018 Subjective: Patient is still on vent. EEG, no activity. Hypoxemic encephalopathy. Physical Examination: Vital Signs: Blood pressure 120/72, pulse of 88. Chest: Clear to auscultation. Heart: S1, S2. Systolic murmur. Abdomen: Soft, nontender. Extremities: No edema. Lab: Reviewed. Medication: Reviewed. Assessment And Plan: Acute kidney injury secondary to poor perfusion, acute tubular necrosis seconda ry to shock, nonoliguric. Continue current gentle hydration. Patient has overall poor prognosis. P pavel's plan to hospice. We will sign off. Please call us as needed. JEFF/ELDER Voice ID: [id number] Report ID: [id number]
[2018-01-31] MEDS: WATER FOR INJ,STERILE 10 ML IV SCH ×2 (01:52→08:28)
[2018-01-31] MEDS: HYDROCORTISONE SUC 100 MG INJ IV SCH ×2 (01:53→08:27)
[2018-01-31] MEDS: NA CHLORIDE 0.9% 1,000 ML IV SCH ×2 (03:29→05:00)
[2018-01-31 06:58] LABS: Absolute Lymphocytes (CBC) 0.7 K/uL (0.7-4.9); Absolute Monocytes 0.5 K/uL (0.1-1.3); Absolute Neutrophil 14.6 K/uL (1.8-8.0); Basophils % 0.1 % (0-1.3); Lymphocytes % 4.2 % (15.3-44.8); MCH 30.2 pg (27.0-35.0); MPV 9.7 fL (7.6-11.3); Monocytes % 3.4 % (3.3-12.3); RBC Red Blood Cell Count 3.85 M/uL (3.86-4.86)
[2018-01-31 07:01] VITALS: BMI 24.0
[2018-01-31] MEDS: ENOXAPARIN 30 MG/0.3 ML SQ SCH (08:28)
[2018-01-31 08:34] LABS: Albumin 2.4 g/dL (3.4-5.0); Bilirubin Total 0.7 mg/dL (0.2-1.0); Phosphorus 3.3 mg/dL (2.5-4.9); Potassium 4.1 mmol/L (3.5-5.1); Protein, Total 5.6 g/dL (6.4-8.2)
[2018-01-31] MEDS ORDERED: D5W 1,000 ML IV SCH (10:00)
--- NOTE | 2018-01-31 15:04 | PN ---
Date of Progress Note: 01/31/2018 Subjective: The patient is seen and examined. Chart reviewed and case discussed with RN. The patient continues to be unresponsive. Family meeting scheduled today to discuss end of life care and possible withdrawal. The patient does have ex- and 3 children from her side and 1 other child who will be involved in the decision-making process. Review of Systems: Unable to obtain due to the patient's medical condition. Physical Examination: Vital Signs: Temperature 97.4, heart rate 84, blood pressure 140/80, respirations 14, O2 saturation 96% on ET tube. General: Intubated, not sedated, unresponsive, ill-appearing female, elderly. CV: S1, S2. No murmurs. Peripheral pulses present. Respiratory: Diminished breath sounds. No wheezing. Gastrointestinal: Abdomen is soft, nondistended. Positive bowel sounds. Extremities: No clubbing or cyanosis. The patient does have upper and lower extremity edema. Neuro: Intubated, not sedated. No spontaneous movements. Pupils pinpoint, but reactive. No facial asymmetry. The patient does have extensor posturing to painful stimuli in the upper extremities. No Babinski reflex, no gag reflex. Laboratory Data: Sodium 152, potassium 4.1, chloride 121, CO2 of 22, BUN 48, creatinine 0.9, glucose 118, calcium 8.3, phosphorus 3.3. AST 236, ALT 1080, albumin 2.4. WBC 15.8, H and H 11.6 and 35, neutrophils 92%, platelets 227. Blood cultures no growth to date. Assessment And Plan: A 72-year-old female with: 1. Anoxic brain injury. The patient nonresponsive, only has pathologic response to painful stimuli with extensor posturing. Appreciate Dr. Martinez's input. We will discuss with family regarding withdrawal of care. 2. Acute respiratory failure, on mechanical ventilation. 3. Status post cardiac arrest. 4. Septic shock. 5. Shock liver. Liver enzymes improving. 6. Hypernatremia. We will switch IV fluids to D5W. 7. Acidosis. 8. Acute tubular necrosis. 9. Acute kidney injury. 10. Possible seizure. 11. Elevated troponin level secondary to cardiac arrest. 12. Steroid dependency on stress dose steroids. 13. Hematoma, improving. 14. Gastrointestinal and deep venous thrombosis prophylaxis addressed. 15. COPD oxygen dependant Plan: Overall prognosis is very poor despite her hypernatremia and possible seizure. EEG was not consistent with seizure activity, showed anoxic brain injury pattern. Chance of recovery is minimal, less than 1% per Neurology. I agree with that assessment. Family discussion yesterday, they agree that the patient would not want to be on life support when there is anoxic brain injury present. Family discussion today to proceed with withdrawal of care, which will be a terminal event, which they understand. /ELDER Voice ID: [id number] Report ID: [id number] ANDREW
[2018-01-31 15:58] VITALS: BP 65/37; TEMP 96.9
--- NOTE | 2018-01-31 16:36 | P.PN ---
Date of Service: 01/31/18 Family meeting with both sons, daughter who was legally adopted by grand parents and domestic partner (not legally ) All members including the 2 sons who are decision makers agree with withdrawal of care. Explained that her chances of meaningful recovery are <1% given her anoxic brain injury. Neurologist Dr. Martinez agrees with anoxic brain injury. Will proceed with withdrawal of care which will likely be terminal.
[2018-01-31] MEDS ORDERED: VANCOMYCIN/NS 1 gm 1 GM/250 ML BAG IV SCH (17:00)
--- NOTE | 2018-02-01 07:27 | DS ---
Date of Discharge: 01/31/2018 Admitting Diagnoses: 1. Acute respiratory failure. 2. Septic shock. 3. Generalized seizure. 4. Cardiac arrest. 5. Elevated liver enzymes secondary to shock liver. 6. Elevated troponin level secondary to cardiac arrest. 7. Hyperkalemia. 8. Acute renal failure. 9. Steroid dependency. 10. Multiorgan failure. 11. Anoxic brain injury. 12. Hypernatremia. 13. Acidosis. 14. Acute tubular necrosis. 15. COPD: oxygen dependant. Hospital Course: The patient is a 72-year-old female with multiple medical problems including COPD, on oxygen; emphysema; hepatitis, who had incarcerated hernia repair surgery on January 24 and then was found down. EMS were called due to unresponsiveness. The patient had shallow respirations and faint pulse. After arrival to the ER, the patient became apneic and pulseless. CPR was started and the patient went into asystole. Compressions were continued. She was intubated and became hypotensive requiring multiple pressors including Levophed and phenylephrine. She was severely acidotic with a pH of 7.1. She did have acute kidney injury to acute renal injury. She had troponin elevation of 0.96. CT scans were done, which showed incidental meningioma. CT neck did not show any findings. CT chest did not visualize any infiltrates or consolidation. CT abdomen did not show any injuries. No hemorrhage. The patient did have a superficial hematoma. The patient was then in the ICU for a prolonged period of time. She did not have any responsiveness. She had an EEG done and Neurology was consulted as well as Nephrology for her acute kidney injury. Her kidney function improved. Then, CT angio chest was done to rule out PE, which was negative. Doppler sono did not show any DVT. The patient was thought to have possible sleep apnea, however, unconfirmed. The patient was seen by Neurology due to her unresponsiveness and overall EEG showing symptoms to be consistent with anoxic brain injury. Her chances of recovery were very dismal. The patient's family members were informed that she has a very poor prognosis and will likely not make any meaningful recovery if any. The patient's family including the 2 sons who were legally the decision makers as the patient's partner and her were never legally . The patient also had 1 daughter who was legally adopted by the grandparents, therefore, did not have a family decision, however, all family members agreed to withdrawal of care , to keep her comfortable as she would not wish to be on life support given her anoxic brain injury. The patient's condition deteriorated. She was unable to be weaned off the vent. Her electrolytes including her sodium worsened. Her white count also was elevated, however, her blood cultures did not show any growth. The patient was then terminally withdrawn from care. The patient initially became hypotensive and bradycardic. Family agreed to withdrawal of care, and the patient had some apneic episodes then stopped breathing. Time of is 14:05. /MODL Voice ID: [id number] Report ID: [id number] ANDREW
== END 2018-01-31 14:05 | disposition expired | DRG 870 ==
LOC: ER 09:16 → ERHOLD 10:23 → 3RD-ICU 13:36
PROVIDERS: ADMIT Internal Medicine; ATTEND Family Medicine
PROC: 5A1955Z Respiratory Ventilation, Greater than 96 Consecutive Hours (ICD-10-PCS; principal; 2018-01-27)
PROC: 0BH17EZ Insertion of Endotracheal Airway into Trachea, Via Natural or Artificial Opening (ICD-10-PCS; 2018-01-27)
PROC: 5A12012 Performance of Cardiac Output, Single, Manual (ICD-10-PCS; 2018-01-27)
PROC: 06HM33Z Insertion of Infusion Device into Right Femoral Vein, Percutaneous Approach (ICD-10-PCS; 2018-01-27)
PROC: 3E043XZ Introduction of Vasopressor into Central Vein, Percutaneous Approach (ICD-10-PCS; 2018-01-27)
DX: A41.9 Sepsis, unspecified organism (principal); K72.00 Acute and subacute hepatic failure without coma; R65.21 Severe sepsis with septic shock; N17.0 Acute kidney failure with tubular necrosis; J96.02 Acute respiratory failure with hypercapnia; G93.1 Anoxic brain damage, not elsewhere classified; E87.0 Hyperosmolality and hypernatremia; E87.2 Acidosis; R56.9 Unspecified convulsions; I46.9 Cardiac arrest, cause unspecified; E87.5 Hyperkalemia; Z79.52 Long term (current) use of systemic steroids; Z99.81 Dependence on supplemental oxygen; J43.9 Emphysema, unspecified; Z51.5 Encounter for palliative care; Z66 Do not resuscitate; E83.42 Hypomagnesemia; E83.39 Other disorders of phosphorus metabolism
CPT/HCPCS: 31500; 36415; 51702; 70450; 71045; 71046; 71250; 71275; 72125; 80048; 80053; 80069; 80076; 80202; 82140; 82550; 82553; 82570; 82805; 82962; 83690; 83735; 83880; 84100; 84132; 84156; 84443; 84484; 85025; 85610; 85730; 86850; 86900; 86901; 87040; 87086; 87088; 88302; 92950; 93005; 93970; 94002; 94003; 94640; 95816; 99291; J0171; J0610; J0690; J0692; J1650; J1720; J2250; J2370; J2405; J2710; J3010; J3370; J3475; J7030; J7060; J7512; Q9967